=== PATIENT | female | born 1980 | race African-American/Black ===

== ENCOUNTER → 2022-06-03 08:12 | Outpatient (BNVA) | payer MEDICARE, MEDICAID, SELFPAY | PROVIDERS: PCP Family Medicine; Visit Provider Nurse Practitioner Family | DX: G47.419 Narcolepsy without cataplexy (principal); G47.10 Hypersomnia, unspecified | CPT/HCPCS: 99212 ==

== ENCOUNTER → 2022-07-26 09:32 | Outpatient (BNVA) | payer MEDICARE, MEDICAID, SELFPAY | PROVIDERS: PCP Family Medicine; Visit Provider Nurse Practitioner Family | DX: G47.419 Narcolepsy without cataplexy (principal); G47.10 Hypersomnia, unspecified | CPT/HCPCS: 99212 ==

== ENCOUNTER 2023-08-26 09:45 | Outpatient (AMB) | payer MEDICARE, MEDICAID, SELFPAY ==
--- NOTE | 2023-08-26 10:04 | A.OFFVIS_ITS ---
Vital Signs 08/26/23 10:06 Pulse 71 Pulse Source Pulse Oximeter Pulse Oximetry (%) 96 Oxygen Delivery Method Room Air Intake Visit Reasons: F/U-LVM Intake Note: Patient presents for follow up. Patient needs narcolepsy medication that insurance denied. Allergies levoquine Allergy (Severe, Uncoded 08/26/23 10:07) Anaphylaxis Medication List - Last Reconciled 08/26/23 by MILAN Doan acetaminophen ER (Tylenol 8 Hour) 650 mg PO Q12H calcium carbonate (Calcium 500) 500 mg PO DAILY famotidine mg PO .prn levothyroxine (Levoxyl) 175 mcg PO DAILY modafinil 200 mg PO QAM 90 days multivitamin (Daily Multi-Vitamin tablet) 1 tab PO DAILY phentermine 18.75 mg PO DAILY polyethylene glycol 3350 (Miralax) 17 grams PO DAILY topiramate mg PO HPI Comments Details: 42-yr-old female presents for f/u visit of narcolepsy. Pt reports she has been on Modafinil, however she has not had it recently as the pharmacy has told her it needs insurance auth. Without Modafinil, she has to take scheduled naps through out the day in order to be able to work, drive, and pick her and take care of her son. Her cognition feels foggy. While on Modafanil, she is able to drive, but she is still not alert and clear. She tried to take classes, but was not on Modafinil, and was falling asleep anytime she picked up a book. Even when taking Modafinil, it is hard to read for long. This is concerning for her, as she is hoping to return to taking college classes. She denies h/o cataplexy. No recent migraines since starting Topiramate. PFSH Surgical History History of hysterectomy H/O thyroidectomy Family History Mother Lung cancer HTN (hypertension) Father Hx of thyroid cancer Pancreas cancer Sister Cancer Social History Alcohol intake: never Patient Tobacco Use Status: Never used Tobacco Physical Exam Vital Signs: Last Vital Signs Pulse 71 08/26/23 10:06 Pulse Ox 96 08/26/23 10:06 Oxygen Delivery Method Room Air 08/26/23 10:06 Const Other: Visibly fatigued. General: cooperative and no acute distress Orientation/consciousness: patient oriented x3 Resp Effort & Inspection: normal respiratory effort and able to speak in complete sentences Neuro General: patient oriented x3 Cranial nerves: Yes CN's II-XII intact bilaterally Cognition (Neuro): normal cognition Psych Appearance: grossly normal Mental Status: mental status grossly normal Speech and movement: Normal speech and movement present Affect: normal affect Attitude: cooperative Assessment & Plan Assessment & Plan (1) Narcolepsy: Comment: Positive MSLT (2017 at [facility]) Code(s): G47.419 - Narcolepsy without cataplexy Category: Medical (2) Hypersomnia: Code(s): G47.10 - Hypersomnia, unspecified Category: Medical (3) Migraine: Code(s): G43.909 - Migraine, unspecified, not intractable, without status migrainosus Category: Medical Plan Resume Modafinil 200mg qam. Discussed other tx options for narcolepsy w/o cataplexy to optimize the managemnet of her narcolepsy/hypersomnia s/s-, including sodium oxybate, Pitolisant, sunosi. Pt states she will review the medications and her insurances's formulary- and let us know if she has any preferences/questions. Continue Topiramate. Continue celecoxib 200mg qd. Medications: New celecoxib (Celebrex) 200 mg PO DAILY Coding Level of Care Code Est Pt Level 4 (77715) Diagnoses Narcolepsy G47.419 Hypersomnia G47.10 Migraine G43.909
[2023-08-26 10:06] VITALS: PULSE 71; O2SAT 96
== END 2023-08-26 11:41 | disposition home or self-care (01) ==
PROVIDERS: PCP Family Medicine; Visit Provider Nurse Practitioner Family
DX: G47.419 Narcolepsy without cataplexy (principal); G47.10 Hypersomnia, unspecified; G43.909 Migraine, unspecified, not intractable, without status migrainosus
CPT/HCPCS: 99214

== ENCOUNTER → 2023-08-26 09:45 | Outpatient (BNVA) | payer MEDICARE, MEDICAID, SELFPAY | PROVIDERS: PCP Family Medicine; Visit Provider Nurse Practitioner Family | DX: G47.419 Narcolepsy without cataplexy (principal); G47.10 Hypersomnia, unspecified; G43.909 Migraine, unspecified, not intractable, without status migrainosus | CPT/HCPCS: 99212 ==

== ENCOUNTER 2024-03-24 15:38 | Outpatient (AMB) | payer MEDICARE, MEDICAID, SELFPAY ==
--- NOTE | 2024-03-24 15:39 | MHC.OFFVIS ---
Vital Signs 03/24/24 15:40 Height 5 ft 5.5 in Weight 185 lb 8 oz BMI 30.4 BP 112/78 Blood Pressure Location Lt brachial Position Sitting Pulse 69 Pulse Source Pulse Oximeter Pulse Oximetry (%) 97 Oxygen Delivery Method Room Air Intake Visit Reasons: 6 month f/u Intake Note: Patient stated left arm from neck to finger numbness(tingling) x 3wks, also wants to be seen for her fibro Allergies levoquine Allergy (Severe, Uncoded 08/26/23 10:07) Anaphylaxis Medication List - Last Reconciled 03/24/24 by MILAN Doan acetaminophen ER (Tylenol 8 Hour) 650 mg PO Q12H calcium carbonate (Calcium 500) 500 mg PO DAILY celecoxib (Celebrex) 200 mg PO DAILY famotidine mg PO .prn levothyroxine (Levoxyl) 175 mcg PO DAILY linaclotide (Linzess) 145 mcg PO DAILY modafinil 200 mg PO QAM 90 days multivitamin (Daily Multi-Vitamin tablet) 1 tab PO DAILY phentermine 18.75 mg PO DAILY polyethylene glycol 3350 (Miralax) 17 grams PO DAILY topiramate 25 mg PO HPI Comments Details: 42-yr-old female presents for f/u visit of narcolepsy, and would like to discus transferring her other neurological care here- migraine, fibromyalgia, and new onset LUE numbness. Pt denies any significant interval changes, other than having a screening colonoscopy in Jan- which showed one polyp. Pt reports she has been taking Modafinil 200mg q 2pm. As her insurance would not cover her previous regimen of Modafinil 100mg qam and 100mg q 2pm. And because she only has 1 200mg mg tab, felt it was best to take the modafinil at the time when she is most likely to unintentionally fall asleep. However, on this new regimen, she can still be sleepy/doze off during the day. She could not take a promotion, as it would require her to read more emails, and doing this can make her fall aslpp/ She previously tried to take classes, but was not on Modafinil, and was falling asleep anytime she picked up a book. Even when taking Modafinil, it is hard to read for long. This is concerning for her, as she is hoping to return to taking college classes. She denies h/o cataplexy. She also notes, 3 weeks ago, she woke up with left sharp pain upon turning her head to the left, a/w LUE numbness/pins and needles- but not necessarily pain. Denies preceding infection or injury. She recently noticed LUE weakness- when reaching out with her left arm to big up a heavier 16oz coffee cup. States she has been using a massage tool, which is helping the neck pain, but the LUE numbness persisted. She was previously f/b [facility] and prior to that Dr Valdes for back pain, and BLE leg pain and sciatica, fibromyalgia. The sciatica and BLE s/s have resolved. However her back does bother her. She has had 3 migraine attacks in February- 2 in the first week, and 1 last week. She has been using a infrared eye mask, which helps to reduce intensity of migraine to a headache. Compliant w/ Topiramate 25mg q 7-8pm. She has prn Celebrex- but only uses for her back pain - though states PCP just informed her she can use this for other pain s/s. Baseline migraine: Comes on quickly out of the blue or wakes up with it. Right or left amish or occipital drilling pain f/b throbbing pain a/w photophobia, phonophobia, sometimes dizziness, activity intolerance. [facility] Surgical History (Updated 03/24/24 @ 15:45 by FARIBA Hannah) H/O colonoscopy History of hysterectomy H/O thyroidectomy Family History Mother Lung cancer HTN (hypertension) Father Hx of thyroid cancer Pancreas cancer Sister Cancer Social History Alcohol intake: never Patient Tobacco Use Status: Never used Tobacco Physical Exam Vital Signs: Last Vital Signs Pulse 69 03/24/24 15:40 BP 112/78 03/24/24 15:40 Pulse Ox 97 03/24/24 15:40 Oxygen Delivery Method Room Air 03/24/24 15:40 BMI result Body Mass Index 30.4 Const General: cooperative and no acute distress Orientation/consciousness: patient oriented x3 Resp Effort & Inspection: normal respiratory effort and able to speak in complete sentences Neuro Other: Bilateral posterior cervical tightness. Cervical ROM: limited, more so in left lateral rotation Bilateral Spurling: Elicits nonradiating discomfort in base of left lower paraspinal region. Muscle strength 5/5 throughout, however right hand grasp slightly stronger than left. DTRs 2+ throughout General: patient oriented x3 Cranial nerves: Yes CN's II-XII intact bilaterally Cognition (Neuro): normal cognition Psych Appearance: grossly normal Mental Status: mental status grossly normal Speech and movement: Normal speech and movement present Affect: normal affect Attitude: cooperative Assessment & Plan Assessment & Plan (1) Narcolepsy: Comment: Positive MSLT (2017 at [facility]) Code(s): G47.419 - Narcolepsy without cataplexy Category: Medical (2) Hypersomnia: Code(s): G47.10 - Hypersomnia, unspecified Category: Medical (3) Migraine: Code(s): G43.909 - Migraine, unspecified, not intractable, without status migrainosus Category: Medical (4) Cervicalgia: Code(s): M54.2 - Cervicalgia Category: Medical (5) Numbness and tingling of left upper extremity: Code(s): R20.0 - Anesthesia of skin; R20.2 - Paresthesia of skin Category: Medical (6) Fibromyalgia: Code(s): M79.7 - Fibromyalgia Category: Medical Plan Discontinue Modafinil 200mg daily at 14:00. Resume modafinil 100 mg twice a day at 09:00 and 14:00. Reviewed workplace and school (if she does decide to return to school) accommodations such as using text to [employer] software for reading and/or responding to emails or taking notes, wire was head phone so she can move around while taking phone calls, listening to emails etc.. List of online patient education narcolepsy resources shared with patient. Future considerations: Ptolisant For LUE numbness a/w neck pain: Start magnesium 400 mg q.h.s. Continue home massage strategies. Check C-spine XR w/ flexion/extension Upon review, consider referral to PT. For migraine: Continue Topiramate 25 mg daily and evening. Continue celecoxib 200mg p.o. daily p.r.n., may use for headache. For fibromyalgia: Patient does not recall what she has previously tried for this. We will request previous [facility] neurology notes.. Will follow-up upon review of above and patient to follow-up in clinic in 6 months or sooner prn. Orders: Orders XR cervical spine w flex/ext 03/24/24 M54.2 - Cervicalgia Medications: New modafinil 100 mg PO BID 180 tabs 1RF 90 days magnesium oxide may hold for loose stools 400 mg PO BEDTIME 30 tabs 6RF 30 days Discontinued modafinil Discontinued Reason: Doctor's Order 200 mg PO QAM 90 days 90 tabs 1RF Coding Level of Care Code Est Pt Level 4 (29562) Complex EM visit Add On G2211 Diagnoses Narcolepsy G47.419 Hypersomnia G47.10 Migraine G43.909 Cervicalgia M54.2 Numbness and tingling of left upper extremity R20.0; R20.2 Fibromyalgia M79.7 Time Spent (min) 45
[2024-03-24 15:40] VITALS: BP 112/78; PULSE 69; O2SAT 97; BMI 30.4
--- OUTSIDE RECORDS SUMMARY | 2024-03-24 17:30 | XMS_ITS | Clinical Summary ---
Author Organization [facility] [address] [place] [address] [place] [phone] Phone Care Team Providers Care Switchboard Receptionist Name Role Phone Althea Breen MD Primary Care Pr ovider Allergies Active Allergy Reactions Criticality Noted Date Comments Cephalexin Low 02/27/2015 Gadolinium-Containing Contrast Media Nausea And Vomiting Low 07/28/2023 Patient was nauseus right after power inj bolus did not vomit//tr Levofloxacin Itching 07/08/2011 New Skin (Nitrocellulose) 05/03/2019 Other Other Medium 02/09/2018 Liquid surgical adhesive. Blisters/Scarring Medications Medication Sig Dispensed Refills Start Date End Date Status CALCIUM CARBONATE ORAL Take 1 Tablet by mouth daily. 09/11/2022 Active calcium carbonate 250 mg/mL (100 mg/mL elemental calcium) suspension Take 1,250 mg by mouth 2 times daily. 11/26/2022 Active cetirizine (ZyrTEC) 10 mg tablet Take 1 tablet (10 mg total) by mouth 1 (one) time each day. 07/16/2023 Active clindamycin (CLEOCIN T) 1 % lotion APPLY 1-2 TIMES DAILY TO AFFECTED AREAS DIRECTED FOR ACNE 07/01/2023 Active estradioL (ESTRACE) 0.01 % (0.1 mg/gram) vaginal cream APPLY 1 G VAGINALLY NIGHTLY FOR 2 WEEKS 05/29/2022 Active fluconazole (DIFLUCAN) 150 mg tablet Take one tab today, if no improvement in 3 dys then take 2nd dose 07/22/2023 Active ketotifen (ZADITOR) 0.025 % ophthalmic solution apply 1 Drop to the eye 2 times daily. 07/16/2023 Active modafiniL (PROVIGIL) 100 mg tablet Take 1 tablet (100 mg total) by mouth 2 (two) times a day. Max Daily Amount: 200 mg 09/09/2022 Active multivitamin (MULTIPLE VITAMINS ORAL) Take by mouth. Active phentermine (ADIPEX-P) 37.5 mg tablet Take 1 tablet (37.5 mg total) by mouth 1 (one) time each day. Max Daily Amount: 37.5 mg 11/28/2021 Active senna-docusate (Senexon-S) 8.6-50 mg per tablet TAKE 2 TABLETS BY MOUTH NIGHTLY AT BEDTIME NEEDED FOR CONSTIPATION 05/01/2023 Active levothyroxine (Synthroid) 175 mcg tablet 1 tab Friday to Friday, half a tablet on Friday Synthroid brand only, no replacement 09/19/2023 Active terconazole (TERAZOL 7) 0.4 % vaginal cream Insert vaginally at bedtime for 7 nights. 07/24/2023 Active topiramate (TOPAMAX) 25 mg tablet Take 1 tablet (25 mg total) by mouth 2 (two) times a day. 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 Smith 11/2012 Dry eye syndrome 07/08/2011 Knee pain 03/07/2010 Overview (12/22/2023): CPX 03/06/10: worsening . 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 Adame, Medullary thyroid carcinoma 08/05/2003 Hysterectomy 03/2019; ovaries remain Migraine 06/11/2007 Overview (12/22/2023): CPX 03/06/10 Occasional migraine Immunizations Name Administration Dates Next Due Hep B, Unspecified 03/04/2008 Hepatitis A Adult (Havrix; V aqta) 19yo and older 02/11/2019 Hepatitis B (Arzqcqy-C-Dkzsj , Recombivax HB-Adult) 19yo and older 03/20/2000 Measles 03/04/2008 Mumps 03/04/2008 PPD Test 09/02/2012, 1,03/06/2009,2007,08/28/2005,10/24/2003,10/19/2003 Pfizer SARS-CoV-2 COVID-19, mRNA, LNP-S, preservative free 03/06/2021 Rubella 03/04/2008 Td Tetanus diptheria (Tdvax) 7yo and older 08/09/2020 Tdap Tetanus diptheria acell ular pertussis (Boostrix; Adacel) 7yo and older 03/06/2010 Varicella live (Varivax) 12m o and older 03/04/2008 Surgical History Surgery Date Site/Laterality Comments OTHER SURGICAL HISTORY PROCEDURE: DC THYROIDECTOMY TOTAL/SUBTOTAL RAD NECK DISSECT OTHER SURGICAL HISTORY PROCEDURE: HISTORICAL PARATHYROID SURGERY OTHER SURGICAL HISTORY PROCEDURE: DC THYMECTOMY PRTL/TOT TRANSCERVICAL APPR SPX OTHER SURGICAL HISTORY PROCEDURE: DC RADIAL KERATOTOMY TUBAL LIGATION PROCEDURE: HISTORICAL TUBAL LIGATION OTHER SURGICAL HISTORY PROCEDURE: LAPAROSCOPY; ADRENALECTOMY HYSTERECTOMY 03/2019 PROCEDURE: HISTORICAL VAGINAL HYSTERECTOMY W/O BSO; COMMENT: [facility], required transfusions , as blood vessel nicked OTHER SURGICAL HISTORY 02/2021 PROCEDURE: DC GASTRIC RSTCV W/O BYP VERTICAL-BANDED GASTROPLY; COMMENT: gastric sleeve Medical History Medical History Date Comments Unspecified disorder of thyroid 2003 DX:Unspecified disorder of thyroid; COMMENT: S/P THYMUS,REMOVED THYROID,PARATHYROID Retinal detachment with reti nal defect, unspecified DX:Retinal detachment with r etinal defect, unspecified 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 DX:Brachymetata rsia BRCA negative 2012 DX:BRCA negative History of blood transfusion DX: History of blood transfusion History of sleeve gastrectomy 09/18/2021 DX :History of sleeve gastrectomy; COMMENT: 02/2021 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 Family History Medical History Relation Name Comments Breast cancer Aunt 1 maternal great aunt-Mom's aunt Cataracts Aunt 1 maternal Glaucoma Aunt 1 maternal-surger y done Breast cancer Aunt 2 m.aunt Other: BRCA neg Aunt 2 m.aunt Mom's sister -no cancer Other: thyroid cancer Brother 1 Arthritis Father Diabetes Father Hyperlipidemia Father and MEN 2A Other: MEN 2A Father and sister and brother Arthritis Maternal Grandmother Cataracts Maternal Grandmother Other: ovarian cancer Maternal Grandmother Ovarian cancer Maternal Grandmother Arthritis Mother Hypertension Mother emphysema, diab etes Strabismus Mother Other: MEN 2A Other 1 nephew Other: MEN 2A Other 2 before 1s t birthday- fluid on brain Leukemia Other 3 paternal first cousin CABG Paternal Grandfather of heart failure Arthritis Paternal Grandmother Other: cancer,other Paternal Grandmother at 67-breast cancer Other: thyroid cancer Sister 1 pheoch romocytoma-possible Blindness Neg Hx Heart attack Neg Hx Macular degeneration Neg Hx Relation Name Status Comments Aunt 1 Aunt 2 m.aunt Alive Brother 1 Brother 2 1,HEALTHY Father Alive MEN 2 Maternal Grandmother glaucom a ; also her sister Mother Other 1 Other 2 Other 3 Paternal Grandfather Paternal Grandmother Sister 1 Sister 2 brain hemorrhag e Social History Tobacco Use Types Packs/Day Years Used Date Smoking Tobacco: Never Smokeless Tobacco: Never Alcohol Use Standard Drinks/Week Comments Yes 0 (1 standard drink = 0.6 oz pur e alcohol) Sex and Gender Information Value Date Recorded Sex Assigned at Not on file Gender Identity Not on file Sexual Orientation Not on file Obstetrics History Last Filed Vital Signs Vital Sign Reading Time Taken Comments Blood Pressure 130/80 08/04/2023 2:30 PM EDT Pulse 64 08/04/2023 2:30 PM EDT Temperature - - Respiratory Rate - - Oxygen Saturation - - Inhaled Oxygen Concentration - - Weight 77.6 kg (171 lb) 09/12/2023 11:22 AM EDT Height 165.1 cm (5' 5 ) 09/12/2023 11:22 AM EDT Body Mass Index 28.46 09/12/2023 11:22 AM EDT Plan of Treatment Upcoming Encounters Date Type Department Care Team (Late st Contact Info) Description 05/07/2024 11:20 AM EDT Appointment Radiology Department [address] [phone] Health Maintenance Due Date Last Done Comments Hepatitis B Vaccines (3 of 3 - 19+ 3-dose series) 04/29/2008 03/04/2008, 03/20/2000 Cervical Cancer Screening: Pap Smear 12/10/2018 12/11/2015, 12/11/2015 Colorectal Cancer Screening: Colonoscopy 02/02/2022 Medicare Annual Wellness Visit 02/02/2022 Social Influencers of Health Screening 02/02/2022 COVID-19 Vaccine ( season) 2023 09/12/2021, 03/27/2021, 03/06/2021 Influenza Vaccine (#1) 2023 Depression Screening 07/15/2024 07/16/2023 Breast Cancer Screening 09/11/2024 09/12/19 23, 04/27/2021, 03/29/2020, Additional history exists Cholesterol Screening (Lipid Panel) 03/15/2027 03/15/2022 DTaP,Tdap,and Td Vaccines (3 - Td or Tdap) 08/09/2030 08/09/2020, 03/06/2010 Varicella Vaccines Aged Out 03/04/2008 No longer eligible based on patient's age to complete this topic Hepatitis A Vaccines Aged Out 02/11/2019 No long er eligible based on patient's age to complete this topic HIV Screening Completed 07/16/2023, 07/16/2023 Hepatitis C Screening Completed 07/16/2023 HIB Vaccines Aged Out No longer eligi ble based on patient's age to complete this topic HPV Vaccines Aged Out No longer eligi ble based on patient's age to complete this topic IPV Vaccines Aged Out No longer eligi ble based on patient's age to complete this topic MMR Vaccines Aged Out No longer eligi ble based on patient's age to complete this topic Meningococcal ACWY Vaccine Aged Out N o longer eligible based on patient's age to complete this topic Pneumococcal Vaccine: Pediatrics (0 to 5 Years) and At-Risk Patients (6 to 64 Years) Aged Out No longer eligible based on patient's age to complete this topic RSV Immunization Patients Under 20 months Aged Out No longer eligible based on patient's age to complete this topic Procedures Procedure Name Priority Date/Time Associated Diagnosis Comments HEPATITIS C SCREENING Routine 07/16/2023 HIV SCREENING Routine 07/16/2023 DEPRESSION SCREENING Routine 07/16/2023 SCREENING MAMMOGRAPHY BI 2-VIEW BREAST INC CAD Routine 09/11/2022 3:35 PM EDT Encounter for screening mammogram for malignant neoplasm of breast LIPID PANEL Routine 03/15/2022 HPV Routine 12/11/2015 from Last 3 Months or Most Recently Relevant to Health Maintenance Results * Depression Screening (07/16/2023) Depression Screening abstracted Historical Provider MD IRLANDA GRIFFIN E * HIV Screening (07/16/2023) Pathologist [facility] HIV Screening abstracted Historical Provider [facility] * Hepatitis C Screening (07/16/2023) Pathologist [facility] Hepatitis C Screening abstracted Historical Provider [facility] * SCREENING MAMMOGRAPHY BI 2-VIEW BREAST INC CAD (09/11/2022 3:35 PM EDT) Anatomical Region Laterality Modality Radiographic Lilia ging 04/27/2021 3:12 PM EST Narrative 09/12/2022 9:10 AM EDT This is a summary report. The complete report is available in the patient's medical record. If you cannot access the medical record, please contact the sending organization for a detailed fax or copy. Full field digital screening tomosynthesis mammography, reviewed with CAD and compared to previous. The breasts are composed of fatty and fibroglandular tissue. ??No suspicious mass, architectural distortion or suspicious calcifications are identified. IMPRESSION: : No mammographic evidence of malignancy. BIRADS 1-Negative; N. 5 year breast cancer risk assessment 0.8 % Lifetime breast cancer risk assessment 9.4 % Breast cancer risk category Low (<15%) Procedure Note Cynthia Rodgers MD - 03/31/2023 This is a summary report. The complete report is available in thepatient's medical record. If you cannot access the medical record, pleasecontact the sending organization for a detailed fax or copy. Full field digital screening tomosynthesis mammography, reviewed with CADand compared to previous. The breasts are composed of fatty andfibroglandular tissue. No suspicious mass, architectural distortion orsuspicious calcifications are identified. IMPRESSION: : No mammographic evidence of malignancy. BIRADS 1-Negative; N. 5 year breast cancer risk assessment 0.8 % Lifetime breast cancer risk assessment 9.4 % Breast cancer risk category Low (<15%) Althea Breen MD IMG XR P ROCEDURES * Lipid panel (03/15/2022) Pathologist [facility] Triglycerides 0 mg/dL Comment:no interpretation, a bstracted Cholesterol 0 mg/dL Comment:no interpretation, a bstracted HDL 0 mg/dL Comment:no interpretation, a bstracted LDL Cholesterol 0 mg/dL Comment:no interpretation, a bstracted Blood Venous blood specimen / Unknown Historical Provider LAB [facility]LOOD [facility] * Cervical Cancer Screening: HPV (12/11/2015) [facility] Cervical Cancer Screening: HPV no interpretation , abstracted Historical Provider [employer] from Last 3 Months or Most Recently Relevant to Health Maintenance Care Teams Switchboard Receptionist Relationship Specialty Start Date End Date Althea Breen MD [address] [place], [place] PCP - General Internal Medicine 11/29/21
== END 2024-03-24 16:00 | disposition home or self-care (01) ==
PROVIDERS: PCP Family Medicine; Visit Provider Nurse Practitioner Family
DX: G47.419 Narcolepsy without cataplexy (principal); G47.10 Hypersomnia, unspecified; G43.909 Migraine, unspecified, not intractable, without status migrainosus; M54.2 Cervicalgia; R20.0 Anesthesia of skin; R20.2 Paresthesia of skin; M79.7 Fibromyalgia
CPT/HCPCS: 99214; G2211

== ENCOUNTER → 2024-03-24 15:38 | Outpatient (BNVA) | payer MEDICARE, MEDICAID, SELFPAY | PROVIDERS: PCP Family Medicine; Visit Provider Nurse Practitioner Family | DX: G47.419 Narcolepsy without cataplexy (principal); G47.10 Hypersomnia, unspecified; G43.909 Migraine, unspecified, not intractable, without status migrainosus; M54.2 Cervicalgia; M79.7 Fibromyalgia; R20.0 Anesthesia of skin; R20.2 Paresthesia of skin | CPT/HCPCS: 99212 ==

== ENCOUNTER 2024-03-31 16:18 | Outpatient (REF) | payer MEDICARE, MEDICAID, SELFPAY ==
--- NOTE | ~2024-03-31 | XR_ITS ---
CLINICAL HISTORY: M54.2 - Cervicalgia 10 views cervical spine Comparison: None Findings: Normal vertebral body alignment. No acute fractures or dislocation. There are uncovertebral joint osteophytes with mild encroachment upon the right C5-C6, and left C5-C6 and C6-C7 foramina. No other significant degenerative change. No prevertebral soft tissue swelling. IMPRESSION: No acute findings. This document has been electronically signed by: Celestine Robins MD on 04/02/2024 08:07:56
--- OUTSIDE RECORDS SUMMARY | 2024-03-31 16:40 | XMS_ITS | Clinical Summary ---
Author Organization [facility] [address] [place] [address] [place] [phone] Phone Care Team Providers Care Butcher Meat Name Role Phone Althea Breen MD Primary [...] Narcolepsy 08/08/2022 Overview (12/22/2023): Visit 07/26/22 with [facility] History of sleeve gastrectomy [...] neck dissection, subtotal parathyroidectomy in [address] [place] [address] Adame, Medullary thyroid carcinoma 08/05/2003 Hysterectomy 03/2019; ovaries remain Migraine 06/11/2007 Overview (12/22/2023): CPX 03/06/10 Occasional migraine Immunizations Name Administration Dates Next Due Hep B, Unspecified 03/04/2008 Hepatitis A Adult (Havrix; V aqta) 19yo and older 02/11/2019 Hepatitis B (Opqxyck-E-Jjics , Recombivax HB-Adult) 19yo and older 03/20/2000 Measles 03/04/2008 Mumps 03/04/2008 PPD Test 09/02/2012, 1,03/06/2009,2007,08/28/2005,10/24/2003,10/19/2003 Pfizer SARS-CoV-2 COVID-19, mRNA, LNP-S, preservative free 03/06/2021 Rubella 03/04/2008 Td Tetanus diptheria (Tdvax) 7yo and older 08/09/2020 Tdap Tetanus diptheria acell ular pertussis (Boostrix; Adacel) 7yo and older 03/06/2010 Varicella live (Varivax) 12m o and older 03/04/2008 Surgical History Surgery Date Site/Laterality Comments OTHER SURGICAL HISTORY PROCEDURE: [place] THYROIDECTOMY TOTAL/SUBTOTAL RAD NECK DISSECT OTHER SURGICAL HISTORY PROCEDURE: HISTORICAL PARATHYROID SURGERY OTHER SURGICAL HISTORY PROCEDURE: [place] THYMECTOMY PRTL/TOT TRANSCERVICAL APPR SPX OTHER SURGICAL HISTORY PROCEDURE: [place] RADIAL KERATOTOMY TUBAL LIGATION PROCEDURE: HISTORICAL TUBAL LIGATION OTHER SURGICAL HISTORY PROCEDURE: LAPAROSCOPY; ADRENALECTOMY HYSTERECTOMY 03/2019 PROCEDURE: HISTORICAL VAGINAL HYSTERECTOMY W/O BSO; COMMENT: [facility], required transfusions , as blood vessel nicked OTHER SURGICAL HISTORY 02/2021 PROCEDURE: KS GASTRIC RSTCV W/O BYP VERTICAL-BANDED GASTROPLY; COMMENT: [...] 05/07/2024 11:20 AM EDT Appointment Radiology Department [address] [phone] Health Maintenance Due Date Last Done Comments [...] GRIFFIN E * HIV Screening (07/16/2023) Pathologist [facility] HIV Screening abstracted Historical Provider [facility] E * Hepatitis C Screening (07/16/2023) Pathologist [facility] Hepatitis C Screening abstracted Historical Provider [facility] E * SCREENING MAMMOGRAPHY BI 2-VIEW BREAST [...] P ROCEDURES * Lipid panel (03/15/2022) Pathologist [facility] Triglycerides 0 mg/dL Comment:no interpretation, a bstracted Cholesterol 0 mg/dL Comment:no interpretation, a bstracted HDL 0 mg/dL Comment:no interpretation, a bstracted LDL Cholesterol 0 mg/dL Comment:no interpretation, a bstracted Blood Venous blood specimen / Unknown Historical Provider LAB BLOOD ORDERAB [facility] * Cervical Cancer Screening: HPV (12/11/2015) [facility] Cervical Cancer Screening: HPV no interpretation , abstracted Historical Provider HEALTH MAINTENANC E from Last 3 Months or Most Recently Relevant to Health Maintenance Care Teams Butcher Meat Relationship Specialty Start Date End Date Althea Breen MD [address] [place], [place] PCP - General Internal Medicine 11/29/21
== END 2024-03-31 16:19 | disposition home or self-care (01) ==
LOC: HO.XRAY 16:18
PROVIDERS: PCP Family Medicine; Visit Provider Nurse Practitioner Family
DX: M54.2 Cervicalgia (principal)
CPT/HCPCS: 72052

== ENCOUNTER → 2024-03-31 16:28 | Outpatient (BNV) | payer MEDICARE, MEDICAID, SELFPAY | PROVIDERS: PCP Family Medicine; Visit Provider Specialist | DX: M54.2 Cervicalgia (principal) | CPT/HCPCS: 72052 ==

== ENCOUNTER 2024-04-29 15:43 | Outpatient (REF) | payer MEDICARE, MEDICAID, SELFPAY ==
--- NOTE | 2024-04-29 15:55 | EMG_ITS ---
Chief complaint: Left-sided neck pain and hand numbness Reason for referral: Evaluate for radiculopathy Referred by: Frannie Man NP Procedure done: Left upper extremity NCS/EMG Precautions and/or limitations: None The limb temperature was monitored continuously and remained between 32-36 degrees C during the performance of the NCS. Nerve Conduction Studies Anti Sensory Summary Table ?Stim Site NR Onset (ms) Norm Onset (ms) Peak (ms) Norm Peak (ms) O-P Amp (?V) Norm O-P Amp Site1 Site2 Delta-0 (ms) Dist (cm) Benjamin (m/s) Norm Benjamin (m/s) Left Median Anti Sensory (2nd Digit) Wrist ? 2.4 2.9 <3.6 23.0 >10 Wrist 2nd Digit 2.4 14.0 58 Left Radial Anti Sensory (Thumb) Forearm ? 1.3 1.9 <3.1 41.3 Forearm Thumb 1.3 0.0 Left Ulnar Anti Sensory (5th Digit) Wrist ? 1.9 2.9 <3.7 28.6 >15.0 Wrist 5th Digit 1.9 14.0 74 Motor Summary Table ?Stim Site NR Onset (ms) Norm Onset (ms) O-P Amp (mV) Norm O-P Amp iAmp (mV) Amp (1st) (%) Site1 Site2 Delta-0 (ms) Dist (cm) Benjamin (m/s) Norm Benjamin (m/s) Left Median Motor (Abd Poll Brev) Wrist ? 2.1 <3.9 11.7 >4.5 13.0 100.0 Elbow Wrist 4.6 21.0 46 >45 Elbow ? 6.7 11.1 12.3 94.9 Left Ulnar Motor (Abd Dig Minimi) Wrist ? 2.8 <3.0 7.9 >5 9.1 100.0 B Elbow Wrist 3.3 20.0 61 >45 B Elbow ? 6.1 7.9 9.1 100.0 A Elbow B Elbow 1.2 10.0 83 >45 A Elbow ? 7.3 7.7 8.9 97.5 EMG ?Side Muscle Nerve Root Ins Act Fibs Psw Amp Dur Poly Recrt Int Pat Comment Left 1stDorInt Ulnar C8-T1 Nml Nml Nml Nml Nml 0 Nml Complete Left FlexCarRad Median C6-7 Nml Nml Nml Nml Nml 0 Nml Complete Left Biceps Musculocut C5-6 Nml Nml Nml Nml Nml 0 Nml Complete Left Triceps Radial C6-7-8 Nml Nml Nml Nml Nml 0 Nml Complete Left Deltoid Axillary C5-6 Nml Nml Nml Nml Nml 0 Nml Complete Paraspinal EMG ?Side Muscle Nerve Root Ins Act Fibs Psw Comment Left Cervical Upper Rami Nml Nml Nml Left Cervical Mid Rami Nml Nml Nml Left Cervical Lower Rami Nml Nml Nml FINDINGS: All motor and sensory nerves tested showed normal latencies, amplitudes and conduction velocities. Concentric needle EMG was performed in selected muscles of the left upper extremity and cervical paraspinals. Study did not reveal signs of electric abnormalities as shown in the table above. IMPRESSION: 1. This is a normal study. 2. There is no electrodiagnostic evidence for median neuropathy, ulnar neuropathy, brachial plexopathy, or cervical radiculopathy. Thank you for your kind referral. Pili Norton MD, STEPHEN Board Certified, [place] Board [employer] and Rehabilitation (ABPMR) Board Certified, [place] Board of Electrodiagnostic Medicine (ABEM) CODIN [id number] MTDD
--- OUTSIDE RECORDS SUMMARY | 2024-04-29 19:12 | XMS_ITS ---
Author Organization [address] [place] [address] Address [address] [place] [phone] Phone Care Team Providers Care Crusher And Binder Operator Name Role Phone Althea Breen MD Primary Care Pr ovider Project Management Professional Care Management Status:Ongoing (Active) Start date:04/13/2024 Enrollment date:04/16/2024 Enrollment reason:Referred by Care Team Overview Referral from PCP office, attributed patient, seeking therapist Case Team Name Relationship Phone Narcisa DOMINGUEZ Material Disposition Inspector(Responsible [facility]) [phone] Continued Care and Services Coordination
--- OUTSIDE RECORDS SUMMARY | 2024-04-29 19:12 | XMS_ITS | Encounter Summary ---
Author Organization [facility] Address [address] [place] [address] Care Team Providers Care Roll Operator Name Role Phone Althea Breen MD Primary Care Pr ovider Reason for Visit * Reason Onset Date Comments Results 04/14/2024 Encounter Details Date Type Department Care Team ([facility] Contact Info) Description 04/14/2024 Telephone Obstetrics and Gynecology - [place] [address] [place] [phone] [facility] [address] [place] [address] Results Social History Tobacco Use Types Packs/Day Years Used Date Smoking Tobacco: Never Smokeless Tobacco: Never Alcohol Use Standard Drinks/Week Comments Yes 0 (1 standard drink = 0.6 oz pur e alcohol) Comments No Sex and Gender Information Value Date Recorded Sex Assigned at Not on file Legal Sex Female 1:48 PM EST Gender Identity Not on file Sexual Orientation Not on file documented as of this encounter Progress Notes * Camille Mendoza RN - 04/14/2024 10:53 AM EST Spoke with pt- advised rx will be sent to pharmacy today. Requesting vaginal cream. Message sent toprovider. * Sade Guerra - 04/14/2024 10:39 AM EST Pt saw on mychart +yeast, would like Rx sent to pharmacy. documented in this encounter Plan of Treatment Upcoming Encounters Date Type Department Care Team (Late st Contact Info) Description 04/30/2024 3:10 PM EST Appointment Radiology Department [address] [phone] documented as of this encounter Visit Diagnoses Not on filedocumented in this encounter Care Teams Roll Operator Relationship Specialty Start Date End Date Althea Breen MD [address] [place], [place] PCP - General Internal Medicine 11/29/21 documented as of this encounter
--- OUTSIDE RECORDS SUMMARY | 2024-04-29 19:12 | XMS_ITS | Encounter Summary ---
Author Organization [facility] Address [address] [place] [address] Care Team Providers Care Relief Driller Name Role Phone Althea Breen MD Primary Care Pr ovider Reason for Visit * Reason Comments Vaginitis/Bacterial Vaginosis Encounter Details Date Type Department Care Team ([facility] Contact Info) Description 04/13/2024 9:00 AM EST Office Visit Obstetrics and Gynecology [facility] [address] [place] [phone] [facility] [address] [place] [address] Vaginal discharge (Primary Dx); Vaginal burning; Vaginal itching; Vaginal odor; Status post hysterectomy Social History Tobacco Use Types Packs/Day Years [...] on file documented as of this encounter Last Filed Vital Signs Vital Sign Reading Time Taken Comments Blood Pressure 113/83 04/13/2024 9:22 AM EST Pulse 85 04/13/2024 9:22 AM EST Temperature - - Respiratory Rate - - Oxygen Saturation - - Inhaled Oxygen Concentration - - Weight 78.9 kg (174 lb) 04/13/2024 9:22 AM EST Height - - Body Mass Index 28.96 09/12/2023 11:22 AM EDT documented in this encounter Ordered Prescriptions Prescription Sig Dispense Quantity Refills Last Filled Start Date End Date triamcinolone (KENALOG) 0.025 % ointment Apply 3-4x/day to affected area 15 g 1 04/13/2024 documented in this encounter Progress Notes * Paco Kay PARAG Murphy - 04/13/2024 9:00 AM EST Chief Complaint Patient presents with Vaginitis/Bacterial Vaginosis .Subjective Patient ID: Kishore Yates is a 43 y.o. female. Presents established c/o vaginal burning from wiping , ithcing, odor and d/c for the past use hospital soap and caused some irritation, has been ongoing since Friday Currently on hysterectomy . 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 Migraine 06/11/2007 Narcolepsy 08/08/2022 Obese 02/29/2008 Pheochromocytoma 01/01/2013 Prediabetes 09/09/2022 Seasonal allergies 07/16/2023 Resolved Ambulatory Problems Diagnosis Date Noted No Resolved Ambulatory Problems Past Medical History: Diagnosis Date BRCA negative 2012 History of blood transfusion 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 No swelling, trouble breathing, or other reaction. Tolerate penicillin multiple times since then. unknown but surgeon told patient never to have levaquin again. It was given intravenously rash, edema Other Other Liquid surgical adhesive. Blisters/Scarring Adhesive Levofloxacin Itching and Rash Other Reaction(s): Surgical tissue adhesive allergy Was told she had a severe reaction to levaquin while under anesthesia. Does not know was reaction was but was told not to take it in the future. unknown but was told by surgeon not to have New Skin (Nitrocellulose) Gadolinium-Containing Contrast Media Nausea And Vomiting Patient was nauseus right after power inj bolus did not vomit//tr Review of Systems Genitourinary: Positive for vaginal discharge. Negative for difficulty urinating, dyspareunia, dysuria and frequency. Objective Vitals: 04/13/24 0922 BP: 113/83 Pulse: 85 Physical Exam Constitutional: Appearance: Normal appearance. Genitourinary: Urethral meatus normal. Genitourinary Comments: S/p hyst vaginal cuffs present Right Labia: No rash, tenderness or lesions. Left Labia: No tenderness, lesions or rash. Vaginal discharge present. Right Adnexa: not tender and no mass present. Left Adnexa: not tender and no mass present. Cervical discharge present. No cervical motion tenderness. Uterus is not enlarged or tender. No uterine mass detected. Neurological: Mental Status: She is alert and oriented to person, place, and time. Assessment/Plan Vaginal discharge (Primary) - Wet prep, genital Vaginal burning - Wet prep, genital Vaginal itching - Wet prep, genital Vaginal odor - Wet prep, genital Status post hysterectomy Other orders - triamcinolone (KENALOG) 0.025 % ointment; Apply 3-4x/day to affected area Dispense: 15 g; Refill:1 Pt to only have inserts for rx if +for bv or yeast F/u prn documented in this encounter Plan of Treatment Upcoming Encounters Date Type Department Care Team (Late st Contact Info) Description 04/30/2024 3:10 PM EST Appointment Radiology Department [address] [phone] documented as of this encounter Procedures Procedure Name Priority Date/Time Associated Diagnosis Comments TRICHOMONAS VAGINALIS ANTIGEN Routine 04/13/2024 9:38 AM EST Vaginal discharge Vaginal burning Vaginal itching Vaginal odor WET PREP, GENITAL Routine 04/13/2024 9:3 8 AM EST Vaginal discharge Vaginal burning Vaginal itching Vaginal odor documented in this encounter Results * Trichomonas vaginalis antigen (04/13/2024 9:38 AM EST) Trichomonas vaginalis Negative Negative 04/13/2024 7:30 PM EST [facility] Swab Vaginal structure / Unknown Non-blood Collection / Unknown 04/13/2024 9:38 AM EST 04/13/2024 9:38 AM EST [facility] MICROBIOLOGY - GENERAL OR DERABLES Final Result Performing Organization Address [facility]/ZIP Co de Phone Number [facility] [address] [place] [address], [place] [phone] * (ABNORMAL) Wet prep, genital (04/13/2024 9:38 AM EST) Clue Cells, Wet Prep Negative Negative 04/13/2024 7:29 PM [facility] Yeast, Wet Prep Positive(A) Negative 04/13/2024 7:29 PM EST [facility] Trichomonas, Wet Prep Indeterminate Negative 04/13/2024 7:29 PM EST [facility] Comment:Refer to Trichomonas antigen. Swab Vaginal structure / Unknown Non-blood Collection / Unknown 04/13/2024 9:38 AM EST 04/13/2024 9:38 AM EST [facility] MICROBIOLOGY - GENERAL OR DERABLES Final Result [facility] [address] [place] [address], [place] [phone] documented in this encounter Visit Diagnoses Diagnosis Vaginal discharge- Primary Leukorrhea, not specified as infective Vaginal burning Other specified symptom associated with female genital organs Vaginal itching Pruritus of genital organs Vaginal odor Unspecified symptom associated with female genital organs Status post hysterectomy Acquired absence of both cervix and uterus documented in this encounter Historical Medications * This list may reflect changes made after this encounter. calcitRIOL (ROCALTROL) 1 mcg/mL solution Take 0.3 mL (0.3 mcg total) by mouth daily. 04/11/2024 celecoxib (CeleBREX) 200 mg capsule TAKE 1 CAPSULE (200 MG TOTAL) BY MOUTH DAILY NEEDED FOR PAIN (BACK PAIN). 08/15/2023 added in this encounter Care Teams Relief Driller Relationship Specialty Start Date End Date Althea Breen MD [address] [place], [place] PCP - General Internal Medicine 11/29/21 documented as of this encounter
--- OUTSIDE RECORDS SUMMARY | 2024-04-29 19:12 | XMS_ITS ---
Author Organization [address] Address [address] [place] [phone] Phone Care Team Providers Care Commutator Tester Name Role Phone Althea Breen MD Primary Care Pr ovider Transitional Care Management Status:Ongoing (Active) Start date:04/10/2024 Enrollment date:04/10/2024 Enrollment reason:Identified using hospital discharge data Case Team Name Relationship Phone Paz Lazo LPN Care Manager(Responsible Staff) Continued Care and Services Coordination
--- OUTSIDE RECORDS SUMMARY | 2024-04-29 19:12 | XMS_ITS | Clinical Summary ---
Author Organization [facility] [address] [place] [address] [place] [phone] Phone Care Team Providers Care Commercial Marketing Specialist Name Role Phone Althea Breen MD Primary Care Pr ovider Allergies Active Allergy Reactions Criticality Noted Date Comments Adhesive 01/08/2021 Cephalexin Swelling Medium 07/05/2005 Other Reaction(s): lip swelling, Quinolone antibiotic product Lips swell 'Heat rash' on lips after keflex, not sure if it was related. No swelling, trouble breathing, or other reaction. Tolerate penicillin multiple times since then. unknown but surgeon told patient never to have levaquin again. It was given intravenously rash, edema Gadolinium-Containing Contrast Media Nausea And Vomiting Low 07/28/2023 Patient was nauseus right after power inj bolus did not vomit//tr Levofloxacin Itching,Rash 07/08/2011 Other Reaction(s): Surgical tissue adhesive allergy Was told she had a severe reaction to levaquin while under anesthesia. Does not know was reaction was but was told not to take it in the future. unknown but was told by surgeon not to have New Skin (Nitrocellulose) 05/03/2019 Other Other Medium 02/09/2018 Liquid surgical adhesive. Blisters/Scarring Medications CALCIUM CARBONATE ORAL Take 1 Tablet by mouth daily. 09/12/19 23 Active calcium carbonate 250 mg/mL (100 mg/mL elemental calcium) suspension Take 1,250 mg by mouth 2 times daily. 11/27/19 23 Active cetirizine (ZyrTEC) 10 mg tablet Take 1 tablet (10 mg total) by mouth 1 (one) time each day. 07/16/19 24 Active clindamycin (CLEOCIN T) 1 % lotion APPLY 1-2 TIMES DAILY TO AFFECTED AREAS DIRECTED FOR ACNE 07/01/19 24 Active estradioL (ESTRACE) 0.01 % (0.1 mg/gram) vaginal cream APPLY 1 G VAGINALLY NIGHTLY FOR 2 WEEKS 05/30/19 23 Active fluconazole (DIFLUCAN) 150 mg tablet Take one tab today, if no improvement in 3 dys then take 2nd dose 07/22/19 24 Active ketotifen (ZADITOR) 0.025 % ophthalmic solution apply 1 Drop to the eye 2 times daily. 07/16/19 24 Active modafiniL (PROVIGIL) 100 mg tablet Take 1 tablet (100 mg total) by mouth 2 (two) times a day. Max Daily Amount: 200 mg 09/10/19 23 Active multivitamin (MULTIPLE VITAMINS ORAL) Take by mouth. Activ e phentermine (ADIPEX-P) 37.5 mg tablet Take 1 tablet (37.5 mg total) by mouth 1 (one) time each day. Max Daily Amount: 37.5 mg 11/29/19 22 Active senna-docusat e (Senexon-S) 8.6-50 mg per tablet TAKE 2 TABLETS BY MOUTH NIGHTLY AT BEDTIME NEEDED FOR CONSTIPATION 05/01/19 24 Active levothyroxine (Synthroid) 175 mcg tablet 1 tab Friday to Friday, half a tablet on Friday Synthroid brand only, no replacement 09/19/19 24 Active topiramate (TOPAMAX) 25 mg tablet Take 1 tablet (25 mg total) by mouth 2 (two) times a day. 09/10/19 23 Active tretinoin (RETIN-A) 0.025 % cream PLEASE SEE ATTACHED FOR DETAILED DIRECTIONS 07/01/19 24 Active celecoxib (CeleBREX) 200 mg capsule TAKE 1 CAPSULE (200 MG TOTAL) BY MOUTH DAILY NEEDED FOR PAIN (BACK PAIN). 08/15/19 24 Active calcitRIOL (ROCALTROL) 1 mcg/mL solution Take 0.3 mL (0.3 mcg total) by mouth daily. 04/11/19 25 Active triamcinolone (KENALOG) 0.025 % ointment Apply 3-4x/day to affected area 15 g 1 04/13/19 25 Active terconazole (TERAZOL 7) 0.4 % vaginal cream Insert 1 applicator into the vagina at bedtime for 7 days. 45 g 04/27/19 25 025 Active terconazole (TERAZOL 7) 0.4 % vaginal cream Insert vaginally at bedtime for 7 nights. 07/24/19 24 025 Discontinued terconazole (TERAZOL 7) 0.4 % vaginal cream Insert 1 applicator into the vagina at bedtime for 7 days. 45 g 04/14/19 25 025 Discontinued(R eorder) Active Problems Problem Noted Date Diagnosed Date Digital mucinous cyst of finger of right hand Allergic conjunctivitis of both eyes 07/16/2023 Seasonal allergies 07/16/2023 Current moderate episode of major depressive dis order 09/09/2022 Prediabetes 09/09/2022 Narcolepsy 08/08/2022 Overview (12/22/2023): Visit 07/26/22 with [facility] Neurology & Sleep History of sleeve gastrectomy [...] 06/11/2007 Overview (12/22/2023): CPX 03/06/10 Occasional migraine Encounters Date Type Department Care Team Description 04/14/2024 Telephone Obstetrics and Gynecology - [facility] [address] [place] [address] Paco Murphy CNM Results 04/13/2024 9:00 AM EST Office Visit Obstetrics and Gynecology - [facility] [address] [place] [address] Paco Murphy CNM Vaginal discharge (Primary Dx); Vaginal burning; Vaginal itching; Vaginal odor; Status post hysterectomy from Last 3 Months Immunizations Name Administration Dates Next Due Hep B, Unspecified 03/04/2008 Hepatitis A Adult (Havrix; V aqta) 19yo and older 02/11/2019 Hepatitis B (Kbfnvqv-P-Bbzdv , Recombivax HB-Adult) 19yo and older 03/20/2000 Measles 03/04/2008 Mumps 03/04/2008 PPD Test 09/02/2012, 1,03/06/2009,2007,08/28/2005,10/24/2003,10/19/2003 Pfizer SARS-CoV-2 COVID-19, mRNA, LNP-S, preservative free 03/06/2021 Rubella 03/04/2008 Td Tetanus diptheria (Tdvax) 7yo and older 08/09/2020 Tdap Tetanus diptheria acell ular pertussis (Boostrix; Adacel) 7yo and older 03/06/2010 Varicella live (Varivax) 12m o and older 03/04/2008 Surgical History Surgery Date Site/Laterality Comments OTHER SURGICAL HISTORY PROCEDURE: AK THYROIDECTOMY TOTAL/SUBTOTAL RAD NECK DISSECT OTHER SURGICAL HISTORY PROCEDURE: HISTORICAL PARATHYROID SURGERY OTHER SURGICAL HISTORY PROCEDURE: AK THYMECTOMY PRTL/TOT TRANSCERVICAL APPR SPX OTHER SURGICAL HISTORY PROCEDURE: AK RADIAL KERATOTOMY TUBAL LIGATION PROCEDURE: HISTORICAL TUBAL LIGATION OTHER SURGICAL HISTORY PROCEDURE: LAPAROSCOPY; ADRENALECTOMY HYSTERECTOMY 03/2019 PROCEDURE: HISTORICAL VAGINAL HYSTERECTOMY W/O BSO; COMMENT: [facility], required transfusions , as blood vessel nicked OTHER SURGICAL HISTORY 02/2021 PROCEDURE: AK GASTRIC RSTCV W/O BYP VERTICAL-BANDED GASTROPLY; COMMENT: [...] Sexual Orientation Not on file Obstetrics History Para Term AB IAB SAB Ectopic Multiple Livin g Live Births 4 3 3 1 1 3 3 Date Outcome GA Total Labor Labor/2nd/3rd Weight Sex Type Anes PTL Philly A1 A5 Name Clin IAB Comments:D&C 1996 Term 41w 3d 16h 00m/ 3771 g (133 oz) F Vag-S pont Epidur al N Livin g Brandee Milan Li on CNM? Delivery Location:[facility] 2003 Term 39w 1d 3h 00m/ 3799 g (134 oz) F Vag-S pont None N Livin g Sareya h Milan Brend a Malon ey CNM Delivery Location:[facility] 2013 Term 39w 0d 9h 41m/ 3481 g (122.8 oz) M Vag-S pont Epidur al Livin g 8 9 Bill Cazares on Mendoza Mota MD Delivery Location:[facility] Comments:IOL arr hythmia (tiny VSD, small PDA), GBS+, Hx MEN2a and s/p resection of pheochromocytoma Last Filed Vital Signs Vital Sign Reading Time Taken Comments Blood Pressure 113/83 04/13/2024 9:22 AM EST Pulse 85 04/13/2024 9:22 AM EST Temperature - - Respiratory Rate - - Oxygen Saturation - - Inhaled Oxygen Concentration - - Weight 78.9 kg (174 lb) 04/13/2024 9:22 AM EST Height 165.1 cm (5' 5 ) 09/12/2023 11:22 AM EDT Body Mass Index 28.96 09/12/2023 11:22 AM EDT Plan of Treatment Upcoming Encounters Date Type Department Care Team (Late st Contact Info) Description 04/30/2024 3:10 PM EST Appointment Radiology Department [address] [phone] Health Maintenance Due Date Last Done Comments Hepatitis B Vaccines (3 of 3 - 19+ 3-dose series) 04/29/2008 03/04/2008, 03/20/2000 Cervical Cancer Screening: Pap Smear 12/10/2018 12/11/2015, 12/11/2015 Colorectal Cancer Screening: Colonoscopy 02/02/2022 Medicare Annual Wellness Visit 02/02/2022 Social Influencers of Health Screening 02/02/2022 COVID-19 Vaccine ( - season) 2023 09/12/2021, 03/27/2021, 03/06/2021 Influenza Vaccine (#1) 2023 Depression Screening 07/15/2024 07/16/2023 Breast Cancer Screening 09/11/2024 09/12/19 23, 04/27/2021, 03/29/2020, Additional history exists Cholesterol Screening (Lipid Panel) 03/15/2027 03/15/2022, 03/15/2022 DTaP,Tdap,and Td Vaccines (4 - Td or Tdap) 08/09/2030 08/09/2020, 05/24/2013, 03/06/2010 Varicella Vaccines Aged Out 03/04/2008 No [...] patient's age to complete this topic Meningococcal B Vacine Aged Out No lo nger eligible based on patient's age to complete [...] discharge Vaginal burning Vaginal itching Vaginal odor HEPATITIS C SCREENING Routine 07/16/2023 HIV SCREENING Routine 07/16/2023 DEPRESSION SCREENING Routine 07/16/2023 SCREENING MAMMOGRAPHY BI 2-VIEW BREAST INC CAD Routine 09/11/2022 3:35 PM EDT Encounter for screening mammogram for malignant neoplasm of breast LIPID PANEL Routine 03/15/2022 HM HPV Routine 12/11/2015 from Last 3 Months or Most Recently Relevant to Health Maintenance Results * Trichomonas vaginalis antigen (04/13/2024 9:38 AM EST) Trichomonas vaginalis Negative Negative 04/13/2024 7:30 PM EST [facility] Swab Vaginal structure / Unknown Non-blood Collection / Unknown 04/13/2024 9:38 AM EST 04/13/2024 9:38 AM EST us [facility] MICROBIOLOGY - GENERAL OR DERABLES Final Result [facility] [address] [place] [address], * (ABNORMAL) Wet prep, genital (04/13/2024 9:38 AM EST) Clue Cells, Wet Prep Negative Negative 04/13/2024 7:29 PM EST [facility] Yeast, Wet Prep Positive(A) Negative 04/13/2024 7:29 PM EST [facility] Trichomonas, Wet Prep Indeterminate Negative 04/13/2024 7:29 PM EST [facility] Comment:Refer to Trichomonas antigen. Swab Vaginal structure / Unknown Non-blood Collection / Unknown 04/13/2024 9:38 AM EST 04/13/2024 9:38 AM EST [facility] MICROBIOLOGY - GENERAL OR DERABLES Final Result [facility] [address] [place] [address], * Depression Screening (07/16/2023) Depression Screening abstracted Historical Provider MD HEALTH MAINTENANCE Final Result * HIV Screening (07/16/2023) Pathologist [facility] HIV Screening abstracted [facility] Provider MD HEALTH MAINTENANCE Final Result * Hepatitis C Screening (07/16/2023) Pathologist [facility] Hepatitis C Screening abstracted Historical Provider MD HEALTH MAINTENANCE Final Result * SCREENING MAMMOGRAPHY BI 2-VIEW BREAST INC [...] Low (<15%) Althea Breen MD IMG XR PROCEDURE S Final Result * Lipid panel (03/15/2022) Triglycerides 0 mg/dL Comment:no interpretation, a bstracted Cholesterol 0 mg/dL Comment:no interpretation, a bstracted HDL 0 mg/dL Comment:no interpretation, a bstracted LDL Cholesterol 0 mg/dL Comment:no interpretation, a bstracted Blood Venous blood specimen / Unknown Historical Provider LAB BLOOD ORDERABLES Malaika l Result * Cervical Cancer Screening: HPV (12/11/2015) Pathologist [facility] Cervical Cancer Screening: HPV no interpretation , abstracted Historical Provider HEALTH MAINTENANCE Final Result from Last 3 Months or Most Recently Relevant to Health Maintenance Insurance MEDICARE [place]ICA[place] - [place] Care Teams Commercial Marketing Specialist Relationship Specialty Start Date End Date Althea Breen MD [address] [place] [address] PCP - General Internal Medicine 11/29/21
== END 2024-04-29 15:44 | disposition home or self-care (01) ==
LOC: HO.NEURO 15:43
PROVIDERS: PCP Family Medicine; Visit Provider Nurse Practitioner Family
DX: R20.0 Anesthesia of skin (principal); R20.2 Paresthesia of skin; M54.2 Cervicalgia
CPT/HCPCS: 95886; 95909

== ENCOUNTER → 2024-04-29 15:55 | Outpatient (BNV) | payer MEDICARE, MEDICAID, SELFPAY | PROVIDERS: PCP Family Medicine; Visit Provider Physical Medicine & Rehabilitation | DX: R20.0 Anesthesia of skin (principal); R20.2 Paresthesia of skin; M54.2 Cervicalgia | CPT/HCPCS: 95886; 95909 ==

== ENCOUNTER 2024-09-23 09:38 | Outpatient (AMB) | payer MEDICARE, MEDICAID, SELFPAY ==
--- NOTE | 2024-09-23 10:03 | A.OFFVIS_ITS ---
Vital Signs 09/23/24 10:04 Height 5 ft 5.5 in Weight 171 lb BMI 28.0 BP 134/88 Blood Pressure Location Lt brachial Position Sitting Pulse 59 Pulse Source Pulse Oximeter Pulse Oximetry (%) 98 Oxygen Delivery Method Room Air Intake Visit Reasons: Follow up 6mo Intake Note: Patient presents follow up Narcolepsy/Migraine medication. X-Ray in chart. Patient is not taking her modafinil since July as she has a heart murmer that was detected. Patient back on topiramate(helping with migraines.) Patient states broken sleep past month. Goes to bed around 9:30-10.(back up at 12-1, 3-4, then up for the day around 6-7(takes while to fall back asleep). Allergies cephalexin (From Keflex) Allergy (Unknown, Verified 09/23/24 10:09) Numbness levoquin Allergy (Unknown, Uncoded 09/23/24 10:09) Unknown Medication List - Last Reconciled 09/23/24 by MILAN Doan acetaminophen ER (Tylenol 8 Hour) 650 mg PO Q12H calcium carbonate (Calcium 500) 500 mg PO DAILY celecoxib (Celebrex) 200 mg PO DAILY famotidine mg PO .prn levothyroxine (Levoxyl) 175 mcg PO DAILY linaclotide (Linzess) 145 mcg PO DAILY magnesium oxide 400 mg PO BEDTIME 30 days modafinil 100 mg PO BID 90 days multivitamin (Daily Multi-Vitamin tablet) 1 tab PO DAILY phentermine 18.75 mg PO DAILY polyethylene glycol 3350 (Miralax) 17 grams PO DAILY topiramate 25 mg PO HPI Comments Details: 43-yr-old female presents for f/u visit of narcolepsy, migraine, fibromyalgia, and new onset LUE numbness. Pt reports for her LUE tingling and BUE distal fingertip becoming white, she had BUE EMG/NCS- which pt reports was normal. Thus, PCP diagnosed pt w/ Raynaud's. Pt also notes that her PCP noted ? increased cardiac murmur- notes a h/o of childhood murmur. She has been referred to cardiology for further evaluation- has an appt in Sep. She has stopped phentermine. States her thyroid levels are stable. She is being scheduled to have a symptomatic right upper back lipoma excision- as it is causing right upper back and anterior chest pressure sensation. Thus, pt has has been only taking her modafinil when she really needs to take it. She notes that she has been struggling, but has had some relief as she has had to stay from work through the summer as her son was not able to go to [place]. States modafinil is still effective and well-tolerated. She denies h/o cataplexy. She reports she has an occasional headache, but no migraine attacks. She has been using a infrared eye mask, which helps to reduce intensity of migraine to a headache. Compliant w/ Topiramate 25mg q 7-8pm. She has prn Celebrex- but only uses for her back pain - though states PCP just informed her she can use this for other pain s/s. Baseline migraine: Comes on quickly out of the blue or wakes up with it. Right or left islam or occipital drilling pain f/b throbbing pain a/w photophobia, phonophobia, sometimes dizziness, activity intolerance. [facility], [facility] Medical History (Updated 09/23/24 @ 10:57 by MILAN Doan) Raynaud's disease Heart murmur Surgical History H/O colonoscopy History of hysterectomy H/O thyroidectomy Family History Mother Lung cancer HTN (hypertension) Father Hx of thyroid cancer Pancreas cancer Sister Cancer Social History Alcohol intake: never Patient Tobacco Use Status: Never used Tobacco Physical Exam Vital Signs: Last Vital Signs Pulse 59 09/23/24 10:04 BP 134/88 09/23/24 10:04 Pulse Ox 98 09/23/24 10:04 Oxygen Delivery Method Room Air 09/23/24 10:04 BMI result Body Mass Index 28.0 Const General: cooperative and no acute distress Orientation/consciousness: patient oriented x3 Resp Effort & Inspection: normal respiratory effort and able to speak in complete sentences Neuro General: patient oriented x3 Cranial nerves: Yes CN's II-XII intact bilaterally Cognition (Neuro): normal cognition Psych Appearance: grossly normal Mental Status: mental status grossly normal Speech and movement: Normal speech and movement present Affect: normal affect Attitude: cooperative Assessment & Plan Assessment & Plan (1) Narcolepsy: Comment: Positive MSLT (2017 at [facility]) Code(s): G47.419 - Narcolepsy without cataplexy Category: Medical Qualifiers: Narcolepsy type: primary without cataplexy Qualified Code(s): G47.419 - Narcolepsy without cataplexy (2) Hypersomnia: Code(s): G47.10 - Hypersomnia, unspecified Category: Medical (3) Migraine: Code(s): G43.909 - Migraine, unspecified, not intractable, without status migrainosus Category: Medical Qualifiers: Migraine type: migraine (< 15 days per month) without aura Status migrainosus presence: without status migrainosus Intractability: not intractable Qualified Code(s): G43.009 - Migraine without aura, not intractable, without status migrainosus (4) Cervicalgia: Code(s): M54.2 - Cervicalgia Category: Medical (5) Numbness and tingling of left upper extremity: Code(s): R20.0 - Anesthesia of skin; R20.2 - Paresthesia of skin Category: Medical (6) Fibromyalgia: Code(s): M79.7 - Fibromyalgia Category: Medical Plan For murmur and new onset Raynaud's: Concur w/ cardiology consult Pt may also benefit from vascualr consult as well. Continue modafinil 100 mg twice a day at 09:00 and 14:00.- may continue to use just prn and before driving pending cardiology work-up. Future considerations: Ptolisant For LUE numbness a/w neck pain: Magnesium 400 mg q.h.s. Continue home massage strategies. C-spine XR w/ flexion/extension- unremarkable For migraine: Continue Topiramate 25 mg daily and evening. Continue celecoxib 200mg p.o. daily p.r.n., may use for headache. For fibromyalgia: Pt using a CBD menthol balm- which is effect. Will follow-up upon review of above and patient to follow-up in clinic in 6 months or sooner prn. 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
--- OUTSIDE RECORDS SUMMARY | 2024-09-23 10:03 | XMS_ITS | Encounter Summary ---
Author Organization [facility] Address [address] [place] [address] Phone Care Team Providers Care Flat Grinder Operator Name Role Phone Dheeraj Perez MD Primary Care Provider [phone] Encounter Details Date Type Department Care Team (Late st Contact Info) Description 04/06/2024 Procedure Pass [facility] Endoscopy Department [address] [place] [address] Social History Tobacco Use Types Packs/Day Years Used Date Smoking Tobacco: Never Smokeless Tobacco: Never Alcohol Use Standard Drinks/Week Comments Yes 0 (1 standard drink = 0.6 oz pur e alcohol) occasional Education Answer Date Recorded Are you interested in more education? Not on deric e 06/21/2022 Are you concerned about learning? Not on file 06/21/2022 No 06/21/2022 No 06/21/2022 Food Answer Date Recorded Within the past 6 months we worried whether our food would run out before we got money to buy more. Never True 04/09/2024 Within the past 6 months the food we bought just didn't last and we didn't have enough money to get more. Never True Residential Stability Answer Date Recor ded What is your housing situation today? I have george sing 04/09/2024 How many times have you move d in the past 12 months? Zero (I did not move) 04/09/2024 Paying for Meds Answer Date Recorded Do you have trouble paying for medicines? No 04/09/2024 Paying Utility Bills Answer Date Record ed Do you have trouble paying your heating or elect ricity bill? No 04/09/2024 Transportation Answer Date Recorded Has the lack of transportati on kept you from medical appointments or from getting medications? No 04/09/2024 Digital Access Answer Date Recorded No 04/09/2024 Yes 04/09/2024 Do you have reliable internet access at home? Ye s 04/09/2024 Do you have a device (e.g., phone, tablet, computer) with a working camera? Yes 04/09/2024 Intimate Partner Violence Answer Date R ecorded Are you denied basic needs s uch as food, clothing, or medical care? No 04/06/2024 In the past 12 months have y ou been in a relationship with a person who hurts, threatens, or tries to control you? No 04/06/2024 Are you denied basic needs s uch as food, clothing, or medical care? No 04/06/2024 In the past 12 months have y ou been in a relationship with a person who hurts, threatens, or tries to control you? No 04/06/2024 Comments No Sex and Gender Information Value Date Recorded Sex Assigned at Female 10/13/2020 9:39 AM EDT Legal Sex Female 9:29 AM EDT Gender Identity Female 10/13/2020 9:39 AM EDT Sexual Orientation Straight 10/13/2020 9: 39 AM EDT documented as of this encounter Functional Status * Calculated C-SSRS Risk Score (Lifetime/Recent) Answer Date of Assessment Author No Risk Indicated 04/06/2024 7:00 PM Evie Rodriguez RN * [place] Suicide Severity Rating Scale (Screener/Recent Self-Report) Question Answer Date of Assessment Author 1. Wish to be (Past 1 Month) No 04/06/2024 7:00 PM Evie Leos RN 2. Non-Specific Active Suici lisa Thoughts (Past 1 Month) No 04/06/2024 7:00 PM Joe Leos RN 6. Suicidal Behavior (Lifetime) No 7:00 PM Evie Leos RN documented as of this encounter Plan of Treatment Upcoming Encounters Date Type Department Care Team (Late st Contact Info) Description 09/27/2024 10:00 AM EDT Nutrition [facility] Weight Management Program [address] [place] [address] Cintia Herzog LDN [address] [place] [address] [email or web address] 12/09/2024 4:30 PM EDT Telemedicine [facility] Weight Management Program @ [place] [address] [place] [address] Kendra Sol PA-C [address] [place] [address] [email or web address] documented as of this encounter Visit Diagnoses Not on filedocumented in this encounter Care Teams Flat Grinder Operator Relationship Specialty Start Date End Date Dheeraj Perez MD [address] [place] [address] PCP - General Internal Medicine 10/13/20 documented as of this encounter Additional Source Comments The information contained in this document represents components of the legal health record. It is not the complete legal health record.[facility]
[2024-09-23 10:04] VITALS: BP 134/88; PULSE 59; O2SAT 98; BMI 28.0
--- OUTSIDE RECORDS SUMMARY | 2024-09-23 10:04 | XMS_ITS | Clinical Summary ---
Author Organization [facility] [address] [place] [address] Address [address] [place] [address] Phone Care Team Providers Care Biofuels Processing Technician Name Role Phone Althea Breen MD Primary [...] Medium 02/09/2018 Liquid surgical adhesive. Blisters/Scarring Medications clindamycin (CLEOCIN T) 1 % lotion APPLY 1-2 TIMES DAILY TO AFFECTED AREAS DIRECTED FOR ACNE Active modafiniL (PROVIGIL) 100 mg tablet Take 1 tablet (100 mg total) by mouth 2 (two) times a day. 3 Active multivitamin (MULTIPLE VITAMINS ORAL) Take by mouth. Activ e tretinoin (RETIN-A) 0.025 % cream PLEASE SEE ATTACHED FOR DETAILED DIRECTIONS 4 Active celecoxib (CeleBREX) 200 mg capsule TAKE 1 CAPSULE (200 MG TOTAL) BY MOUTH DAILY NEEDED FOR PAIN (BACK PAIN). 4 Active ketotifen fumarate (ZADITOR) 0.035 % ophthalmic solutionIndication s:Allergic conjunctivitis of both eyes,Dry eye syndrome of both eyes Administer 1 drop into both eyes 2 (two) times a day. 5 mL 2 5 Active cetirizine (ZyrTEC) 10 mg tabletIndications: Allergic conjunctivitis of both eyes,Dry eye syndrome of both eyes Take 1 tablet (10 mg total) by mouth 1 (one) time each day. 90 tablet 1 5 Active Synthroid 175 mcg tabletIndications: Postprocedural hypothyroidism TAKE 1 TABLET BY MOUTH FRIDAY TO FRIDAY, skip dose on Friday 5 Active Active Problems Problem Noted Date Diagnosed Date Parathyroid adenoma 07/08/2024 Iron deficiency anemia 07/08/2024 Assessment & Plan (07/08/2024 5:16 PM EDT): Continue daily bariatric multivitamin with iron. Will update labs Orders: CBC and differential; Future Iron and TIBC; Future Ferritin; Future Raynaud's phenomenon without gangrene 07/08/2024 Assessment & Plan (07/08/2024 5:16 PM EDT): Symptoms in her fingers seems consistent with Raynaud's EMG testing is ordered for evaluation of the numbness in the fingers. Offered amlodipine trial which she defers for now Orders: Comprehensive metabolic panel; Future Systolic murmur 07/08/2024 Assessment & Plan (07/08/2024 5:16 PM EDT): Noted on exam today. Echocardiogram is ordered for further evaluation Orders: Transthoracic echocardiogram (TTE) complete with PRN contrast, bubble, strain, and 3D order panel; Future Digital mucinous cyst of finger of right hand Allergic conjunctivitis of both eyes 07/16/2023 Assessment & Plan (07/08/2024 5:16 PM EDT): Continue Zyrtec and ketotifen Orders: ketotifen fumarate (ZADITOR) 0.035 % ophthalmic solution; Administer 1 drop into both eyes 2 (two) times a day. cetirizine (ZyrTEC) 10 mg tablet; Take 1 tablet (10 mg total) by mouth 1 (one) time each day. Seasonal allergies 07/16/2023 Current moderate episode of major depressive disorder ([facility] V24, [facility] V28) 09/09/2022 Assessment & Plan (07/08/2024 5:16 PM EDT): Currently not interested in medication management but she will consider therapy. Was provided with information for psych wellness Prediabetes 09/09/2022 Assessment & Plan (07/08/2024 5:16 PM EDT): Due for labs which are ordered Orders: Hemoglobin A1c; Future Lipid panel with reflex to direct LDL; Future Narcolepsy 08/08/2022 Overview (12/22/2023): Visit 07/26/22 with [facility] Assessment & Plan (07/08/2024 5:16 PM EDT): Continue modafinil daily and neurology follow-up History of sleeve gastrectomy 09/18/2021 Overview (12/22/2023): 02/2021 Assessment & Plan (07/08/2024 5:16 PM EDT): Continue bariatric multivitamin with iron 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 Smith 11/2012 Dry eye syndrome 07/08/2011 Assessment & Plan (07/08/2024 5:16 PM EDT): Continue Zyrtec and ketotifen Orders: ketotifen fumarate (ZADITOR) 0.035 % ophthalmic solution; Administer 1 drop into both eyes 2 (two) times a day. cetirizine (ZyrTEC) 10 mg tablet; Take 1 tablet (10 mg total) by mouth 1 (one) time each day. Knee pain 03/07/2010 Overview (12/22/2023): CPX 03/06/10: worsening . 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 Fibromyalgia 03/10/2009 Overview (12/22/2023): Saw dr villatoro.has chondromalacia of patella 03/06/10- cpx :GOES TO AQUATIC THERAPY Assessment & Plan (07/08/2024 5:16 PM EDT): Continue Celebrex sparingly as needed Obese 02/29/2008 Overview (12/22/2023): CPX 03/06/10: knows she needs to lose weight Hypothyroid 07/02/2007 Assessment & Plan (07/08/2024 5:16 PM EDT): Continue levothyroxine 175 mcg Friday to Friday, half tablet on Friday. 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 Adame, Medullary thyroid carcinoma 08/05/2003 Hysterectomy 03/2019; ovaries remain Migraine 06/11/2007 Overview (12/22/2023): CPX 03/06/10 Occasional migraine Encounters Date Type Department Care Team Description 09/01/2024 6:25 PM EDT - 09/01/2024 11:59 PM EDT Hospital Encounter Radiology Department [address] [phone] MEN 2 (multiple endocrine neoplasia, type 2) ([facility] V24, [facility] V28) Discharge Disposition: Home or Self Care 08/17/2024 3:30 PM EDT Consult General Surgery [facility] [address] [phone] Harshal Root, DO Lipoma, unspecified site 08/11/2024 9:45 AM EDT Office Visit Endocrinology [address] [phone] Arline Roman MD MEN 2 (multiple endocrine neoplasia, type 2) ([facility] V24, [facility] V28) (Primary Dx) 08/05/2024 Telephone Adult Medicine [address] [phone] Althea Breen MD Ankle Pain 07/27/2024 3:13 PM EDT - 07/27/2024 11:59 PM EDT Hospital Encounter [facility] [address] [place] [phone] Neuropathy Discharge Disposition: Home or Self Care 07/15/2024 9:00 AM EDT - 07/15/2024 11:59 PM EDT Hospital Encounter CT Scan - [address] [phone] Lipoma, unspecified site Discharge Disposition: Home or Self Care 07/14/2024 Telephone Adult Medicine [address] [phone] Althea Breen MD 07/13/2024 3:54 PM EDT - 07/13/2024 11:59 PM EDT Hospital Encounter Radiology Department [address], [place] [phone] Lipoma of torso; Benign neoplasm of other specified sites Discharge Disposition: Home or Self Care 07/08/2024 9:00 AM EDT Office Visit [address] [phone] Althea Breen MD Hospital discharge follow-up (Primary Dx); History of sleeve gastrectomy; Thrush; Allergic conjunctivitis of both eyes; Dry eye syndrome of both eyes; Fibromyalgia; Postoperative hypothyroidism; Primary narcolepsy with cataplexy; Prediabetes; Moderate episode of recurrent major depressive disorder (CMS/HCC V24, CMS/HCC V28); Iron deficiency anemia, unspecified iron deficiency anemia type; Raynaud's phenomenon without gangrene; Neuropathy; Cervical cancer screening; Encounter for screening for cardiovascular disorders; Systolic murmur; Lipoma of torso; Benign neoplasm of other specified sites 06/28/2024 Telephone Adult Medicine [address] [phone] Althea Breen MD triage 06/23/2024 Nurse Triage [address] [phone] Althea Breen MD Thrush from Last 3 Months Immunizations Name Administration Dates Next Due Hep B, Unspecified 03/04/2008 Hepatitis A Adult (Havrix; V aqta) 19yo and older 02/11/2019 Hepatitis B (Msuuspi-F-Fievm , Recombivax HB-Adult) 19yo and older 03/20/2000 Measles 03/04/2008 Mumps 03/04/2008 PPD Test 09/02/2012, 1,03/06/2009,2007,08/28/2005,10/24/2003,10/19/2003 Pfizer SARS-CoV-2 COVID-19, mRNA, LNP-S, preservative free 03/06/2021 Rubella 03/04/2008 Td Tetanus diptheria (Tdvax) 7yo and older 08/09/2020 Tdap Tetanus diptheria acell ular pertussis (Boostrix; Adacel) 7yo and older 03/06/2010 Varicella live (Varivax) 12m o and older 03/04/2008 Surgical History Surgery Date Site/Laterality Comments OTHER SURGICAL HISTORY PROCEDURE: OK THYROIDECTOMY TOTAL/SUBTOTAL RAD NECK DISSECT OTHER SURGICAL HISTORY PROCEDURE: HISTORICAL PARATHYROID SURGERY OTHER SURGICAL HISTORY PROCEDURE: OK THYMECTOMY PRTL/TOT TRANSCERVICAL APPR SPX OTHER SURGICAL HISTORY PROCEDURE: OK RADIAL KERATOTOMY TUBAL LIGATION PROCEDURE: HISTORICAL TUBAL LIGATION OTHER SURGICAL HISTORY PROCEDURE: LAPAROSCOPY; ADRENALECTOMY HYSTERECTOMY 03/2019 PROCEDURE: HISTORICAL VAGINAL HYSTERECTOMY W/O BSO; COMMENT: [facility], required transfusions , as blood vessel nicked OTHER SURGICAL HISTORY 02/2021 PROCEDURE: OK GASTRIC RSTCV W/O BYP VERTICAL-BANDED GASTROPLY; COMMENT: gastric sleeve SLEEVE GASTROPLASTY 04/06/2024 endoscopic sleeve gastroplasty Medical History Medical History Date Comments Unspecified [...] Date Smoking Tobacco: Never Smokeless Tobacco: Never Tobacco Cessation:Counseling Given: Not Answered Alcohol Use Standard Drinks/Week Comments Yes 0 (1 standard drink = 0.6 oz pur e alcohol) Housing Instability Answer Date Recorde d Are you worried that in the next 2 months you may not have stable housing? No 07/08/2024 Food Access & Nutrition Answer Date Rec orded Do you have access to a vari ety of food including fruits and vegetables? Yes 07/08/2024 Access to Healthcare Answer Date Record ed Within the last 3 months, nate gama many times did you visit the emergency department for your medical care? 0 07/08/2024 Health Literacy Answer Date Recorded How often do you need to hav e someone help you when you read instructions, pamphlets, or other written material from your doctor or pharmacy? Never 07/08/2024 Caregiver: How often do you need to have someone help you when you read instructions, pamphlets, or other written material from your doctor or pharmacy? Not on file 07/08/2024 Financial Risk Answer Date Recorded How hard is it for you to pa y for the very basics like food, housing, medical care, and air conditioning / heating? Not very hard 07/08/2024 Transportation Answer Date Recorded Has the lack of transportati on kept you from meetings, work, or from getting things needed for daily living? No Has the lack of transportati on kept you from medical appointments or from getting medications? No 07/08/2024 Social Isolation Answer Date Recorded How often do you feel lonely or isolated from th ose around you? Always 07/08/2024 Food Risk Answer Date Recorded Within the past 12 months we worried whether our food would run out before we got money to buy more. Never true 07/08/2024 Within the past 12 months th e food we bought just didn't last and we didn't have money to get more. Never true 07/08/2024 Dependent Care Answer Date Recorded Do you need help finding or paying for care for your loved ones. For example, child day care provider or elderly care for an older adult? Yes 07/08/2024 Education Answer Date Recorded Do you think completing more education or training, like finishing a GED, going to college, or learning a trade, would be helpful for you? Yes 07/08/2024 Employment and Income Answer Date Recor ded During the last four weeks, have you been actively looking for work? No 07/08/2024 Living Situation Answer Date Recorded What is your living situation? 0 07/08/2024 Comments No Sex and Gender Information Value [...] pont Epidur al N Livin g Brandee Li on CNM? Delivery Location:[facility] 2003 Term 39w 1d 3h 00m/ 3799 g (134 oz) F Vag-S pont None N Livin g Gala paulino [place] Judit Dumont ey CNM Delivery Location:[facility] 2013 Term 39w 0d 9h 41m/ 3481 g (122.8 oz) M Vag-S pont Epidur al Livin g 8 9 Bill Cazares on C.To Mota MD Delivery Location:[facility] Comments:IOL arr hythmia (tiny VSD, small PDA), GBS+, Hx MEN2a and s/p resection of pheochromocytoma Last Filed Vital Signs Vital Sign Reading Time Taken Comments Blood Pressure 105/73 08/17/2024 3:31 PM EDT Pulse 75 08/17/2024 3:31 PM EDT Temperature 36.3 C (97.3 F) 08/11/2024 9:50 AM EDT Respiratory Rate 18 07/08/2024 9:26 AM EDT Oxygen Saturation 98% 08/11/2024 9:50 AM EDT Inhaled Oxygen Concentration - - Weight 78.2 kg (172 lb 4.8 oz) 08/17/2024 3:31 P M EDT Height 166.4 cm (5' 5.5 ) 08/17/2024 3:31 PM EDT Body Mass Index 28.24 08/17/2024 3:31 PM EDT Plan of Treatment Upcoming Encounters Date Type Department Care Team (Late st Contact Info) Description 10/05/2024 9:15 AM EDT Appointment Radiology Department - [address] [phone] 10/13/2024 7:00 AM EDT Ancillary Procedure [facility] [address] [facility] [address] [place] [phone] 10/19/2024 9:15 AM EDT Office Visit General Surgery - [place] [address] [phone] Harshal Root, DO [address] [address] 05/03/2025 3:20 PM EDT Appointment Radiology Department - [address] [phone] Health Maintenance Due Date Last Done Comments Hepatitis B Vaccines (3 of 3 - 19+ 3-dose series) 04/29/2008 03/04/2008, 03/20/2000 Cervical Cancer Screening: Pap Smear 12/10/2018 12/11/2015, 12/11/2015 Medicare Annual Wellness Visit 02/02/2022 COVID-19 Vaccine ( season) 2023 09/12/2021, 03/27/2021, 03/06/2021 Influenza Vaccine (#1) 2024 Social Influencers of Health Screening 07/08/2025 07/08/2024 Breast Cancer Screening 04/30/2026 05/01/19, 09/11/2022, 04/27/2021, Additional history exists Colorectal Cancer Screening: Colonoscopy 02/10/2029 Cholesterol Screening (Lipid Panel) 07/09/2029 07/09/2024, 03/15/2022, 03/15/2022 DTaP,Tdap,and Td Vaccines (4 - Td or Tdap) 08/09/2030 08/09/2020, 05/24/2013, 03/06/2010 Varicella Vaccines Aged Out 03/04/2008 No longer eligible based on patient's age to complete this topic Hepatitis A Vaccines Aged Out 02/11/2019 No long er eligible based on patient's age to complete this topic HIV Screening Completed 07/16/2023, 07/16/2023 Hepatitis C Screening Completed 07/16/2023 Depression Screening Completed 07/08/2024, 07/16/19 24 HIB Vaccines Aged Out No longer eligi [...] age to complete this topic Meningococcal B Vaccine Aged Out No l onger eligible based on patient's age to complete this topic Pneumococcal Vaccine: Pediatrics (0 to 5 Years) and At-Risk Patients (6 to 49 Years) Aged Out No longer eligible based on patient's age to complete this topic RSV Immunization Patients Under 20 months Aged Out No longer eligible based on patient's age to complete this topic Procedures Procedure Name Priority Date/Time Associated Diagnosis Comments US HEAD NECK SOFT TISSUE Routine 09/01/2024 6:47 PM EDT MEN 2 (multiple endocrine neoplasia, type 2) (CMS/HCC V24, CMS/HCC V28) EMG Routine 07/27/2024 3:[address] CHEST WO CONTRAST Routine 07/15/2024 9:26 AM EDT Lipoma, unspecified site US ABDOMEN LIMITED Routine 07/13/2024 4: 11 PM EDT Lipoma of torso Benign neoplasm of other specified sites TRIIODOTHYRONINE FREE Routine 07/09/2024 10:18 AM EDT Postoperative hypothyroidism FREE THYROXINE WITH REFLEX TO FREE TRIIODOTHYRONINE Routine 07/09/2024 10:18 AM EDT Postoperative hypothyroidism CBC WITH AUTO DIFFERENTIAL Routine 07/09/2024 10:18 AM EDT Iron deficiency anemia, unspecified iron deficiency anemia type CBC AND DIFFERENTIAL Routine 07/09/2024 10:18 AM EDT Iron deficiency anemia, unspecified iron deficiency anemia type IRON AND TIBC Routine 07/09/2024 10:18 AM EDT Iron deficiency anemia, unspecified iron deficiency anemia type FERRITIN Routine 07/09/2024 10:18 AM EDT Iron deficiency anemia, unspecified iron deficiency anemia type COMPREHENSIVE METABOLIC PANEL Routine 07/09/2024 10:18 AM EDT Postoperative hypothyroidism Raynaud's phenomenon without gangrene THYROID STIMULATING HORMONE WITH REFLEX TO FREE T4 AND FREE T3 Routine 07/09/2024 10:18 AM EDT Postoperative hypothyroidism HEMOGLOBIN A1C Routine 07/09/2024 10:18 AM EDT Prediabetes LIPID PANEL WITH REFLEX TO DIRECT LDL Routine 07/09/2024 10:18 AM EDT Prediabetes Encounter for screening for cardiovascular disorders MG MAMMO DIGITAL SCREENING W SKY BILAT Routine 04/30/2024 3:50 PM EST Encounter for screening mammogram for breast cancer DEPRESSION SCREENING Routine 07/16/2023 HEPATITIS C SCREENING Routine 07/16/2023 HIV SCREENING Routine 07/16/2023 HPV Routine 12/11/2015 from Last 3 Months or Most Recently Relevant to Health Maintenance Results * US Head Neck Soft Tissue (09/01/2024 6:47 PM EDT) Anatomical Region Laterality Modality Head and Neck Ultrasound 09/02/2024 8:42 AM EDT Impressions 09/02/2024 8:51 AM EDT 1. Within the right submandibular region are morphologically normal lymph nodes which are subcentimeter in short axis diameter. -------- FINAL REPORT -------- Dictated By: Roland Moore Dictated Date: 09/02/2024 08:42 ET Assigned Physician: Roland Moore Reviewed and Electronically Signed By: Roland Moore Signed Date: 09/02/2024 08:51 ET Workstation ID: [id number] Transcribed By: Self Edit Transcribed Date: 09/02/2024 08:42 ET Narrative 09/02/2024 8:51 AM EDT Exam: Thyroid ultrasound. HISTORY: History of thyroid cancer status post resection COMPARISON: Ultrasound soft tissue neck from 12/12/2022 Technique: Grayscale and Doppler images of the thyroid gland were obtained. FINDINGS: Patient is status post thyroidectomy. The surgical bed is unremarkable. No residual thyroid tissue. Within the right submandibular region is an ovoid reniform node measuring 1.5 x 0.7 x 1.2 cm, 1.0 x 1.8 x 0.4 cm ovoid node. Procedure Note Roland Moore MD - 09/02/2024 Exam: Thyroid ultrasound. HISTORY: History of thyroid cancer status post resection COMPARISON: Ultrasound soft tissue neck from 12/12/2022 Technique: Grayscale and Doppler images of the thyroid gland wereobtained. FINDINGS: Patient is status post thyroidectomy. The surgical bed is unremarkable. Noresidual thyroid tissue. Within the right submandibular region is an ovoidreniform node measuring 1.5 x 0.7 x 1.2 cm, 1.0 x 1.8 x 0.4 cm ovoidnode. IMPRESSION: 1. Within the right submandibular region are morphologically normal lymphnodes which are subcentimeter in short axis diameter. -------- FINAL REPORT -------- Dictated By: Roland Moore Dictated Date: 09/02/2024 08:42 ET Assigned Physician: Roland Moore Reviewed and Electronically Signed By: Roland Moore Signed Date: 09/02/2024 08:51 ET Workstation ID: [id number] Transcribed By: Self Edit Transcribed Date: 09/02/2024 08:42 ET us Arline Roman MD IMG US PROCEDURES Final Result * EMG (07/27/2024 3:28 PM EDT) Narrative Michelle Cook MD - 07/27/2024 3:55 PM EDT Images from the original result were not included. [facility] [address] [place] [address] Electromyograph Report Date of service: 07/27/24 Patient Name: Kishore Yates Date of : 1980 Age: 43 y.o. Gender: female Procedure Order: EMG Ordering Provider: Althea Breen MD Reason for Exam: There are no answered order specific questions. Diagnosis listed on Order: Neuropathy Please see scanned report for testing details and results. Procedure Note Michelle Cook MD - 07/27/2024 Images from the original note were not included. [facility] [address] [place] [address] Electromyograph Report Date of service: 07/27/24 Patient Name: Kishore Yates Date of : 1980 Age: 43 y.o. Gender: female Procedure Order: EMG Ordering Provider: Althea Breen MD Reason for Exam: There are no answered order specific questions. Diagnosis listed on Order: Neuropathy Please see scanned report for testing details and results. EDT Althea Breen MD NEUROLOGY ORDERA BLES Final Result * CT Chest wo Contrast (07/15/2024 9:26 AM EDT) Anatomical Region Laterality Modality Body Computed Tomogra phy 07/15/2024 5:11 PM EDT Narrative 07/15/2024 5:[address] without intravenous contrast. History large lipoma on the posterior right. Examination was performed on multidetector scanner with prone position of the patient. Comparison with some ultrasound obtained on 07/13/2024. There is arm 7 x 3.5 x 6.3 cm fatty attenuation mass in the right lateral chest wall. No other focal abnormalities were identified in the chest wall. Major airways are patent. There is no pleural or pericardial effusion. There is no evidence of pulmonary nodules or focal airspace opacities. Mediastinal and hilar structures are unremarkable. There is no gross lymphadenopathy. Evaluation is limited due to lack of intravenous contrast. Bony structures revealed degenerative changes in the mid and lower thoracic segment. No suspicious osteolytic or osteoblastic lesions were identified. CONCLUSIONS: Palpable abnormality corresponds to large fatty attenuation mass as detailed, most likely lipoma. -------- FINAL REPORT -------- Dictated By: Cynthia Rodgers Dictated Date: 07/15/2024 17:11 ET Assigned Physician: Cynthia Rodgers Reviewed and Electronically Signed By: Cynthia Rodgers Signed Date: 07/15/2024 17:17 ET Workstation ID: [id number] Transcribed By: Self Edit Transcribed Date: 07/15/2024 17:11 ET Procedure Note Cynthia Rodgers MD - 07/15/[address] without intravenous contrast. History large lipoma on the posterior right. Examination was performed on multidetector scanner with prone position ofthe patient. Comparison with some ultrasound obtained on 07/13/2024. There is arm 7 x 3.5 x 6.3 cm fatty attenuation mass in the right lateralchest wall. No other focal abnormalities were identified in the chestwall. Major airways are patent. There is no pleural or pericardial effusion.There is no evidence of pulmonary nodules or focal airspace opacities.Mediastinal and hilar structures are unremarkable. There is no grosslymphadenopathy. Evaluation is limited due to lack of intravenouscontrast. Bony structures revealed degenerative changes in the mid and lowerthoracic segment. No suspicious osteolytic or osteoblastic lesions wereidentified. CONCLUSIONS: Palpable abnormality corresponds to large fatty attenuationmass as detailed, most likely lipoma. -------- FINAL REPORT -------- Dictated By: Cynthia Rodgers Dictated Date: 07/15/2024 17:11 ET Assigned Physician: Cynthia Rodgers Reviewed and Electronically Signed By: Cynthia Rodgers Signed Date: 07/15/2024 17:17 ET Workstation ID: [id number] Transcribed By: Self Edit Transcribed Date: 07/15/2024 17:11 ET us Althea Breen MD IMG CT PROCEDURE S Final Result * US Abdomen Limited (07/13/2024 4:11 PM EDT) Anatomical Region Laterality Modality Body Ultrasound 07/13/2024 4:42 PM EDT Impressions 07/13/2024 4:46 PM EDT Area of palpable concern corresponds to 6.2 cm lipoma. Please note the mass extends past the field of view. Recommend CT chest to evaluate size of lipoma, if larger than 10 cm, orthopedic consultation is recommended. -------- FINAL REPORT -------- Dictated By: Roland Moore Dictated Date: 07/13/2024 16:42 ET Assigned Physician: Roland Moore Reviewed and Electronically Signed By: Roland Moore Signed Date: 07/13/2024 16:46 ET Workstation ID: [id number] Transcribed By: Self Edit Transcribed Date: 07/13/2024 16:42 ET Narrative 07/13/2024 4:46 PM EDT EXAMINATION: US ABDOMEN LIMITED 07/13/2024 4:08 PM Patient : 1980 CLINICAL DATA/INDICATIONS: right upper back lump COMPARISON: MRI abdomen from 07/28/2023 TECHNIQUE: Multiple grayscale images of the subcutaneous soft tissues of the right lateral posterior back were obtained with limited color Doppler flow FINDINGS: There is an ovoid hypoechoic solid mass measuring 6.0 x 6.3 x 2.0 cm. The mass extends past the field of view. No vascularity. Procedure Note Roland Moore MD - 07/13/2024 EXAMINATION: US ABDOMEN LIMITED 07/13/2024 4:08 PM Patient : 1980 CLINICAL DATA/INDICATIONS: right upper back lump COMPARISON: MRI abdomen from 07/28/2023 TECHNIQUE: Multiple grayscale images of the subcutaneous soft tissues ofthe right lateral posterior back were obtained with limited color Dopplerflow FINDINGS: There is an ovoid hypoechoic solid mass measuring 6.0 x 6.3 x 2.0 cm. Themass extends past the field of view. No vascularity. IMPRESSION: Area of palpable concern corresponds to 6.2 cm lipoma. Please note themass extends past the field of view. Recommend CT chest to evaluate sizeof lipoma, if larger than 10 cm, orthopedic consultation is recommended. -------- FINAL REPORT -------- Dictated By: Roland Moore Dictated Date: 07/13/2024 16:42 ET Assigned Physician: Roland Moore Reviewed and Electronically Signed By: Roland Moore Signed Date: 07/13/2024 16:46 ET Workstation ID: [id number] Transcribed By: Self Edit Transcribed Date: 07/13/2024 16:42 ET us Althea Breen MD [facility] [place] PROCEDURE S Final Result * (ABNORMAL) Thyroid stimulating hormone with reflex to free t4 and free t3 (07/09/2024 10:18 AM EDT) TSH <0.05(L) 0.40 - 4.00 mcIU/mL LAB CHEMISTRY METHOD 07/09/2024 4:47 PM EDT [facility] Blood Venous blood specimen / Unknown Venipuncture / Unknown 07/09/2024 10:18 AM EDT 07/09/2024 10:18 AM EDT Althea Breen MD LAB BLOOD ORDERA BLES Final Result Performing Organization Address [facility]/ZIP Co de Phone Number [facility] [address] [place] [address], [place] [phone] * Free thyroxine with reflex to free triiodothyronine (07/09/2024 10:18 AM EDT) Free T4 1.52 0.70 - 1.80 ng/dL LAB CHEMISTRY METHOD 07/09/2024 5:32 PM EDT [facility] Blood Venous blood specimen / Unknown Venipuncture / Unknown 07/09/2024 10:18 AM EDT 07/09/2024 10:18 AM EDT Althea Breen MD LAB BLOOD ORDERA BLES Final Result Performing Organization Address [facility] Co de Phone Number [facility] [address] [place] [address], [place] [phone] * Lipid panel with reflex to direct LDL (07/09/2024 10:18 AM EDT) Cholesterol 166 0 - 200 mg/dL LAB CHEMISTRY METHOD 07/09/2024 2:20 PM EDT [facility] Triglycerides 40 0 - 150 mg/dL LAB CHEMISTRY METHOD 07/09/2024 2:20 PM EDT [facility] HDL 59 >=40 mg/dL LAB CHEMISTRY METHOD 07/09/2024 2:20 PM EDT [facility] LDL Calculated 99 0 - 100 mg/dL LAB CHEMISTRY METHOD 07/09/2024 2:20 PM EDT [facility] VLDL Cholesterol Rohan 8 mg/dL LAB CHEMISTRY METHOD 07/09/2024 2:20 PM EDT [facility] Non HDL Chol. (LDL+VLDL) 107 <145 mg/dL LAB CHEMISTRY METHOD 07/09/2024 2:20 PM EDT [facility] Chol/HDL Ratio 2.8 0.0 - 4.4 LAB CHEMISTRY METHOD 07/09/2024 2:20 PM EDT [facility] Blood Venous blood specimen / Unknown Venipuncture / Unknown 07/09/2024 10:18 AM EDT 07/09/2024 10:18 AM EDT Althea Breen MD LAB BLOOD ORDERA BLES Final Result [facility] [address] [place] [address], * (ABNORMAL) CBC auto differential (07/09/2024 10:18 AM EDT) WBC 4.2(L) 4.8 - 10.8 K/mcL LAB HEMETOLOGY METHOD 07/09/2024 12:34 PM EDT [facility] RBC 3.90 3.80 - 4.80 M/mcL LAB HEMETOLOGY METHOD 07/09/2024 12:34 PM EDT [facility] Hemoglobin 10.2(L) 11.5 - 16.0 g/dL LAB HEMETOLOGY METHOD 07/09/2024 12:34 PM EDT [facility] Hematocrit 33.0(L) 35.0 - 47.0 % LAB HEMETOLOGY METHOD 07/09/2024 12:34 PM EDT [facility] MCV 84.8 79.0 - 98.0 FL LAB HEMETOLOGY METHOD 07/09/2024 12:34 PM EDT [facility] MCH 26.2(L) 27.0 - 32.0 pcg LAB HEMETOLOGY METHOD 07/09[facility]2024 [facility] MCHC 30.9(L) 32.0 - 37.0 g/dL LAB HEMETOLOGY METHOD 07/09/2024 12[facility] RDW 13.2 11.0 - 15.0 % LAB HEMETOLOGY METHOD 07/09/2024 12:34 PM EDT [facility] Platelets 362 130 - 400 K/mcL LAB HEMETOLOGY METHOD 07/09/2024 12:[facility] MPV 9.4 7.0 - 11.0 FL LAB HEMETOLOGY METHOD 07/09/2024 12:[facility] NRBC 0.0 <1.0 % LAB HEMETOLOGY METHOD 07/09/2024 12:[facility] NRBC Absolute 0.00 <0.10 K/mcL LAB HEMETOLOGY METHOD 07/09/2024 12:[facility] Neutrophils Relative 42.2 % LAB HEMETOLOGY METHOD 07/09/2024 12:34 PM [facility] Lymphocytes Relative 46.1 % LAB HEMETOLOGY METHOD 07/09/2024 12:[facility] Monocytes Relative 7.9 % LAB HEMETOLOGY METHOD 07/09/2024 12:[facility] Eosinophils Relative 2.6 % LAB HEMETOLOGY METHOD 07/09/2024 12:34 PM [facility] Basophils Relative 1.0 % LAB HEMETOLOGY METHOD 07/09/2024 12:34 PM [facility] Immature Granulocytes Relative 0.2 % LAB HEMETOLOGY METHOD 07/09/2024 12:34 PM EDT [facility] Neutrophils Absolute 1.77 1.50 - 7.00 K/mcL LAB HEMETOLOGY METHOD 07/09/2024 12:34 PM EDT [facility] Lymphocytes Absolute 1.93 1.00 - 5.00 K/mcL LAB HEMETOLOGY METHOD 07/09/2024 12:34 PM EDT [facility] Monocytes Absolute 0.33 0.20 - 1.00 K/mcL LAB HEMETOLOGY METHOD 07/09/2024 12:34 PM EDT [facility] Eosinophils Absolute 0.11 0.00 - 0.50 K/[facility] LAB HEMETOLOGY METHOD 07/09/2024 12:34 PM EDT [facility] Basophils Absolute 0.04 0.00 - 0.20 K/mcL LAB HEMETOLOGY METHOD 07/09/2024 12:34 PM EDT [facility] Immature Granulocytes Absolute 0.01 0.00 - 0.03 K/[facility] LAB HEMETOLOGY METHOD 07/09/2024 12:34 PM EDT [facility] Blood Venous blood specimen / Unknown Venipuncture / Unknown 07/09/2024 10:18 AM EDT 07/09/2024 10:18 AM EDT Althea Breen MD LAB BLOOD ORDERA BLES Final Result [facility] [address] [place] [address], * (ABNORMAL) Iron and TIBC (07/09/2024 10:18 AM EDT) Iron 53 40 - 150 mcg/dL LAB CHEMISTRY METHOD 07/09/2024 2:20 PM EDT [facility] TIBC 245(L) 250 - 450 mcg/dL LAB CHEMISTRY METHOD 07/09/2024 2:20 PM EDT [facility] Iron Saturation 22 15 - 50 % LAB CHEMISTRY METHOD 07/09/2024 2:20 PM EDT [facility] Blood Venous blood specimen / Unknown Venipuncture / Unknown 07/09/2024 10:18 AM EDT 07/09/2024 10:18 AM EDT Althea Breen MD LAB BLOOD ORDERA BLES Final Result Performing Organization Address [facility]/ZIP Co de Phone Number [facility] [address] [place] [address], [place] [phone] * Triiodothyronine free (07/09/2024 10:18 AM EDT) T3, Free 328 230 - 420 pcg/dL LAB CHEMISTRY METHOD 07/09/2024 6:01 PM EDT [facility] Blood Venous blood specimen / Unknown Venipuncture / Unknown 07/09/2024 10:18 AM EDT 07/09/2024 10:18 AM EDT Althea Breen MD LAB BLOOD ORDERA BLES Final Result Performing Organization Address [facility]/ZIP Co de Phone Number [facility] [address] [place] [address], [place] [phone] * Hemoglobin A1c (07/09/2024 10:18 AM EDT) Hemoglobin A1C 5.5 <6.5 % LAB CHEMISTRY METHOD 07/09/2024 3:22 PM EDT [facility] Mean Bld Glu Estim. 111 mg/dL LAB CHEMISTRY METHOD 07/09/2024 3:22 PM EDT [facility] Blood Venous blood specimen / Unknown Venipuncture / Unknown 07/09/2024 10:18 AM EDT 07/09/2024 10:18 AM EDT Althea Breen MD LAB BLOOD ORDERA BLES Final Result Performing Organization Address City/[facility]/ZIP Co de Phone Number [facility] [address] [place] [address], [place] [phone] * Ferritin (07/09/2024 10:18 AM EDT) Pathologist [facility] Ferritin 115 8 - 252 ng/mL LAB CHEMISTRY METHOD 07/09/2024 2:20 PM EDT [facility] Blood Venous blood specimen / Unknown Venipuncture / Unknown 07/09/2024 10:18 AM EDT 07/09/2024 10:18 AM EDT Althea Breen MD LAB BLOOD ORDERA BLES Final Result Performing Organization Address [facility]/ZIP Co de Phone Number [facility] [address] [place] [address], [place] [phone] * (ABNORMAL) Comprehensive metabolic panel (07/09/2024 10:18 AM EDT) [facility] Sodium 141 133 - 145 mmol/L LAB CHEMISTRY METHOD 07/09/2024 2:20 PM EDT [facility] Potassium 4.3 3.5 - 5.5 mmol/L LAB CHEMISTRY METHOD 07/09/2024 2:20 PM EDT [facility] Chloride 108 96 - 110 mmol/L LAB CHEMISTRY METHOD 07/09/2024 2:20 PM EDT [facility] CO2 27 21 - 32 mmol/L LAB CHEMISTRY METHOD 07/09/2024 2:20 PM EDT [facility] Anion Gap 6 3 - 11 LAB CHEMISTRY METHOD 07/09/2024 2:20 PM EDT [facility] Glucose 78 70 - 100 mg/dL LAB CHEMISTRY METHOD 07/09/2024 2:20 PM [facility] BUN 15 5 - 25 mg/dL LAB CHEMISTRY METHOD 07/09/2024 2:20 PM [facility] Creatinine 0.63 0.50 - 1.10 mg/dL LAB CHEMISTRY METHOD 07/09/2024 2:20 PM [facility] eGFR 112 >=60 mL/min/1. 73m2 LAB CHEMISTRY METHOD 07/09/2024 2:20 PM [facility] Comment:Calculation based on the Chronic Kidney Disease Epidemiology Collaboration (CKD-EPI) equation refit without adjustment for race. BUN/Creatinine Ratio 23.8 LAB CHEMISTRY METHOD 07/09/2024 2:20 PM [facility] Calcium 7.9(L) 8.5 - 10.5 mg/dL LAB CHEMISTRY METHOD 07/09/2024 2:20 PM [facility] AST (SGOT) 10 10 - 42 unit/L LAB CHEMISTRY METHOD 07/09/2024 2:20 PM [facility] ALT (SGPT) 14 10 - 60 unit/L LAB CHEMISTRY METHOD 07/09/2024 2:20 PM [facility] Alkaline Phosphatase 57 42 - 121 unit/L LAB CHEMISTRY METHOD 07/09/2024 2:20 PM [facility] Total Protein 7.2 6.0 - 8.0 g/dL LAB CHEMISTRY METHOD 07/09/2024 2:20 PM [facility] Albumin 3.8 3.2 - 5.0 g/dL LAB CHEMISTRY METHOD 07/09/2024 2:20 PM [facility] Total Bilirubin 0.2 0.0 - 1.4 mg/dL LAB CHEMISTRY METHOD 07/09/2024 2:20 PM [facility] Blood Venous blood specimen / Unknown Venipuncture / Unknown 07/09/2024 10:18 AM EDT 07/09/2024 10:18 AM EDT Althea Breen MD LAB BLOOD ORDERA BLES Final Result [facility] [address] [place] [address], [place] [phone] * MG Mammo Digital Screening w Sky bilat (04/30/2024 3:50 PM EST) Anatomical Region Laterality Modality Breast Bilateral Mammography 05/01/2024 4:59 PM EST Impressions 05/01/2024 5:00 PM EST No mammographic evidence for malignancy. BI-RADS CATEGORY: 1 - NEGATIVE RECOMMENDATION: Screening bilateral mammogram is recommended in 1 year. Mammo Location: [facility], [address] [place] [address], [id number], . -------- FINAL REPORT -------- Dictated By: Cynthia Rodgers Dictated Date: 05/01/2024 16:59 ET Assigned Physician: Cynthia Rodgers Reviewed and Electronically Signed By: Cynthia Rodgers Signed Date: 05/01/2024 17:00 ET Workstation ID: [id number] Transcribed By: Self Edit Transcribed Date: 05/01/2024 16:59 ET Narrative 05/01/2024 5:00 PM EST Bilateral screening mammogram. CLINICAL: 43 years old, Female, routine annual exam. COMPARISON: Prior studies, latest from 09/11/2022. TECHNIQUE: Bilateral MLO and CC views were obtained digitally with 2-D C views and 3-D mammogram (digital breast tomosynthesis). Computer-aided detection was utilized in evaluation of this exam (CAD). FINDINGS: There is no evidence of suspicious mass or architectural distortion. No worrisome calcifications are evident. There has been no significant change from prior exam(s). BREAST DENSITY: B - There are scattered areas of fibroglandular density. Procedure Note Cynthia Rodgers MD - 05/01/2024 Bilateral screening mammogram. CLINICAL: 43 years old, Female, routine annual exam. COMPARISON: Prior studies, latest from 09/11/2022. TECHNIQUE: Bilateral MLO and CC views were obtained digitally with 2-D Cviews and 3-D mammogram (digital breast tomosynthesis). Computer-aideddetection was utilized in evaluation of this exam (CAD). FINDINGS: There is no evidence of suspicious mass or architectural distortion. Noworrisome calcifications are evident. There has been no significantchange from prior exam(s). BREAST DENSITY: B - There are scattered areas of fibroglandular density. IMPRESSION: No mammographic evidence for malignancy. BI-RADS CATEGORY: 1 - NEGATIVE RECOMMENDATION: Screening bilateral mammogram is recommended in 1 year. Mammo Location: [facility], [address] [place] [address], [id number], . -------- FINAL REPORT -------- Dictated By: Cynthia Rodgers Dictated Date: 05/01/2024 16:59 ET Assigned Physician: Cynthia Rodgers Reviewed and Electronically Signed By: Cynthia Rodgers Signed Date: 05/01/2024 17:00 ET Workstation ID: [id number] Transcribed By: Self Edit Transcribed Date: 05/01/2024 16:59 ET Althea Breen MD IM BI PROCEDURE S Final Result * Depression Screening (07/16/2023) Pathologist [facility] Depression Screening abstracted Historical Provider HEALTH MAINTENANCE Final Result * HIV Screening (07/16/2023) [facility] HIV Screening abstracted Historical Provider HEALTH MAINTENANCE Final Result * Hepatitis C Screening (07/16/2023) [facility] Hepatitis C Screening abstracted [facility] Provider HEALTH MAINTENANCE Final Result * Cervical Cancer Screening: HPV (12/11/2015) [facility] Cervical Cancer Screening: HPV no interpretation , abstracted us Historical Provider HEALTH MAINTENANCE Final Result from Last 3 Months or Most Recently Relevant to Health Maintenance Insurance MEDICARE MEDICAID [place] [employer] Care Teams [employer] Relationship Specialty Start Date End Date Althea Breen MD [address] [facility] [place], [place] PCP - General Internal Medicine 11/29/21
== END 2024-09-23 11:04 | disposition home or self-care (01) ==
LOC: HO.HSMS 09:38
PROVIDERS: PCP Family Medicine; Visit Provider Nurse Practitioner Family
DX: G47.419 Narcolepsy without cataplexy (principal); G47.10 Hypersomnia, unspecified; G43.009 Migraine without aura, not intractable, without status migrainosus; M54.2 Cervicalgia; R20.0 Anesthesia of skin; R20.2 Paresthesia of skin; M79.7 Fibromyalgia
CPT/HCPCS: 99214

== ENCOUNTER → 2024-09-23 09:38 | Outpatient (BNVA) | payer MEDICARE, MEDICAID, SELFPAY | PROVIDERS: PCP Family Medicine; Visit Provider Nurse Practitioner Family | DX: G47.419 Narcolepsy without cataplexy (principal); G47.10 Hypersomnia, unspecified; G43.009 Migraine without aura, not intractable, without status migrainosus; M54.2 Cervicalgia; M79.7 Fibromyalgia; R20.0 Anesthesia of skin; R20.2 Paresthesia of skin | CPT/HCPCS: 99212 ==